=== PATIENT | female | born 1960 | race Caucasian/White ===

== ENCOUNTER 2024-09-20 09:16 | Outpatient (AMB) | payer MEDICARE, OTHER, MEDICAID, SELFPAY ==
--- OUTSIDE RECORDS SUMMARY | 2024-09-20 09:17 | XMS_ITS | Clinical Summary ---
Author Organization [facility] Address [address] [place] [address] Phone Care Team Providers Care Supervising Nurse Name Role Phone PAUL RAMIREZ, INGRID Primary Care Provider [phone] [facility] Un[facility] [phone] Reason for Visit and Chief Complaint Post Op Visit/Follow Up Plan of Treatment No Plan of Treatment Recorded Assessments Includes: Assessments from this encounter No Assessments Recorded Medical Equipment - Implanted Devices Includes: Current Devices No Medical Equipment Recorded Medications Administered Includes: Administered Medications from this encounter No Administered Medications Recorded Vital Signs Includes: Vital Signs from this encounter Vital Name 10/13/2023 08:35A Blood Pressure Sitting (mmHg) 125/85 Pulse Rate-Sitting (bpm) 99 Temp-Temporal 96.9 Weight (lb) 203 Oxygen Saturation (%) 99 Last Documented: On 10/13/2023 8:35AM ; [facility] Results Includes: Results discussed during this encounter No Results Recorded For Specified Dates History of Present Illness Includes: History of Present Illness from this encounter No History of Present Illness Recorded Social History No Social History Recorded - Smoking Status Unknown Procedures and Surgical History Includes: Procedures from this encounter Procedures Code Diagnosis Performing Provider Service Location Service Date X-Ray Exam of Hip unilateral 2-3 views (Right) 15968 Unsp intracapsular fracture of right femur, init for clos fx Karlo Mathias MD [facility] 10/13/2023 Last Documented On 4 11:04AM ; [facility] Medical History Includes: Medical History addressed during this encounter No Medical History Recorded Family History Includes: Family History addressed during this encounter No Family History Recorded Review of Systems Includes: Review of Systems from this encounter No Review of Systems Recorded Mental Status Includes: Mental Status from this encounter No Mental Status Recorded Functional Status Includes: Functional Status from this encounter No Functional Status Recorded Physical Exam Includes: Physical Exam from this encounter Encounters Encounter Provider Location Date Check-In Time Check-Out Time Diagnosis Post Op Visit/Follow Up Karlo Mathias MD [facility] 10/13/19 8:20AM 9:06AM Insurance Includes: Active Insurance Policies Plan Name Member ID Group # Subscriber Relationship Effect jose antonio Dates 1 - Medicare Part B [facility] [id number] Azul Rothman Self 2 - [id number] Azul Rothman Self 3 - [facility] [id number] Azul Rothman Self Clinical Notes Includes: Clinical Notes from this encounter * Progress note Date Encounter Last Documented by 10/13/2023 Post Op Visit/Follow Up Last doc umented on 10/13/2023; 9:08 AM, Karlo Mathias MD; [facility], Chief Complaint CC right hip, nondisplaced femoral neck fracture S/p in situ fixation cannulated screws DOS: 12 September 2023 HPI: 63-year-old female returns today ambulates without crutch cane or gait aid Denies groin pain states a little bit sore at the scar and little bit of hypersensitivity there Denies fevers chills sweats denies Protelos drainage cellulitis erythema or true fluctuance Physical exam alert oriented nondistressed female. Rises easily gait nonantalgic. Leg lengths equal no rotational asymmetry incision: Pristine Little bit of hypersensitivity but no sign of dehiscence drainage fluctuance or purulence no hematoma seroma noted Sensation intact distally good capillary refill distally X-rays Thursday, 13 October 2023 Right hip 2 views Well-placed cannulated screws x 3 Maintenance of tip to apex distance Minimal prominence laterally without backout Plan: Weightbearing as tolerated Reassurance follow-up 6 weeks x-rays right hip 2 views AP lateral Physical Findings - Vitals taken 10/13/2023 08:35 am BP-Sitting 125/85 mmHg Pulse Rate-Sitting 99 bpm Temp-Temporal 96.9 F Weight 203 lbs Oxygen Saturation 99 %
--- OUTSIDE RECORDS SUMMARY | 2024-09-20 09:17 | XMS_ITS ---
Author Organization [place] [facility] Address [address] [place] [address] Phone Care Team Providers Care Aircraft Landing Gear Inspector Name Role Phone PAUL RAMIREZ, INGRID Primary Care Provider [phone] [facility] Un[facility] [phone] Plan of Treatment No Plan of Treatment Recorded Assessments Includes: Assessments for all patient encounters No Assessments Recorded Medical Equipment - Implanted Devices Includes: Current and historical Devices No Medical Equipment Recorded Medications Administered Includes: Administered Medications in patient's chart No Administered Medications Recorded Vital Signs Includes: Vital Signs from 09/20/2023 through 09/20/2024 Vital Name 10/13/2023 08:35A Blood Pressure Sitting (mmHg) 125/85 Pulse Rate-Sitting (bpm) 99 Temp-Temporal 96.9 Weight (lb) 203 Oxygen Saturation (%) 99 Last Documented: On 10/13/2023 8:35AM ; [facility] Results Includes: Results from 09/20/2023 through 09/20/2024 No Results Recorded For Specified Dates History of Present Illness History of Present Illness not supported for this document type No History of Present Illness Recorded Social History No Social History Recorded - Smoking Status Unknown Procedures and Surgical History Includes: Procedures from 09/20/2023 through 09/20/2024 Procedures Code Diagnosis Performing Provider Service Location Service Date X-Ray Exam of Hip unilateral 2-3 views (Right) 17713 Unsp intracapsular fracture of right femur, init for clos fx Karlo Mathias MD [facility] 10/13/2023 Last Documented On 11:04AM ; [facility] Medical History Includes: Medical History in patient's chart No Medical History Recorded Family History Includes: Family History in patient's chart No Family History Recorded Review of Systems Review of Systems not supported for this document type No Review of Systems Recorded Mental Status No Mental Status Recorded Functional Status No Functional Status Recorded Physical Exam Physical Exam not supported for this document type No Physical Exam Recorded Encounters Includes: Encounters from 09/20/2023 through 09/20/2024 Encounter Provider Location Date Check-In Time Check-Out Time Diagnosis Post Op Visit/Follow Up Karlo Mathias MD [facility] 10/13/19 8:20AM 9:06AM Insurance Includes: Active Insurance Policies Plan Name Member ID Group # Subscriber Relationship Effect jose antonio Dates 1 - Medicare Part B [facility] [id number] Azul Chidi Stephan Self 2 - [id number] Azul Chidi Stephan Self 3 - [facility] [id number] Azul Chidi Bradendamian Self Clinical Notes Includes: Signed Clinical Notes starting from 08/31/2022 * Progress note Date Encounter Last Documented by 10/13/2023 Post Op Visit/Follow Up Last doc umented on 10/13/2023; 9:08 AM, Karlo Mathias MD; [facility] Chief Complaint CC right hip, nondisplaced femoral [...] intact distally good capillary refill distally X-rays 13 October 2023 Right hip 2 views [...]
--- OUTSIDE RECORDS SUMMARY | 2024-09-20 09:17 | XMS_ITS | Clinical Summary ---
Author Organization [facility] [facility] Address [address] [place] [address] Phone Care Team Providers Care Crime Lab Analyst Name Role Phone PAUL RAMIREZ, INGRID Primary Care Provider [phone] [facility] [facility] Unavailable [phone] Reason for Visit and Chief Complaint Post Op Visit/Follow Up Plan of Treatment No Plan of Treatment Recorded Assessments Includes: Assessments from this encounter No Assessments Recorded Medical Equipment - Implanted Devices Includes: Current Devices No Medical Equipment Recorded Medications Administered Includes: Administered Medications from this encounter No Administered Medications Recorded Results Includes: Results discussed during this encounter No Results Recorded For Specified Dates History of Present Illness Includes: History of Present Illness from this encounter No History of Present Illness Recorded Social History No Social History Recorded - Smoking Status Unknown Medical History Includes: Medical History addressed during [...] Exam Includes: Physical Exam from this encounter No Physical Exam Recorded Insurance Includes: Active Insurance Policies Plan Name Member ID Group # Subscriber Relationship Effect jose antonio Dates 1 - Medicare Part B [facility] [id number] Azul Rothman Self 2 - [id number] Azul Rothman Self 3 - [facility] [id number] Azul Rothman Self Clinical Notes Includes: Clinical Notes from this encounter No Clinical Notes Recorded
--- OUTSIDE RECORDS SUMMARY | 2024-09-20 09:17 | XMS_ITS ---
Care Plan - [facility] Created on: September 20, 2024 Azul Rothman : 1960 Sex: Female Author Organization [facility] Address [address] [place] [address] Phone Care Team Providers Care Paper Products Inspector Name Role Phone INGRID MILLER MD Primary Care Provider [phone] [facility] Unavailable [phone]
--- OUTSIDE RECORDS SUMMARY | 2024-09-20 09:18 | XMS_ITS | Data Portability ---
Author Organization [place] [facility] Address [address] [place] [address] Care Team Providers Care Transmission Design Engineer Name Role Phone ANN MILLER Primary Care Provider Assessment Encounter Date Assessment Date Assessment LastModified by Organization Details LastModified Time 12/17/2019 12/17/2019 Overview/History : Pt is a 59yo F with PMH sig for Anxiety, HTN, and Autoimmunie disorders. Pt reports that for the last 4 days with the increasing concerns r/t COVID 19 pt's anxiety has become increasingly worse. She reports heart palpations which have occurred in the past with her anxiety. She also reports SOB and CP at times that is substernal and non-reproducible. Pt was restarted on her citalopram 4 days ago and given PRN ativan that has not yet improved sx of anxiety. Exam: Pt is A/Ox3, anxious appearing, VSS but HR intermittently tachycardic, EKG shows NSR with PVCs, resp reg and unlabored on RA, lungs CTA bilat. DDx considered, but not limited to: Anxiety: likely cause of sx given hx and that sx are worse when pt becomes more anxious ACS: possible given CP is substernal and non-reproducible, no active NV noted on EKG at time of visit Plapations: likely given PVCs noted on EKG during visit. Hypokalemia: likely given K of 3.1 on labs Work up/Results: POC 6+: K of 3.1 Cr: WNL EKG: NSR with PVC Plan/Discussion: Case discussed with Virtual Doctor onchosea, Dr. Ribera, given pt's sx and age pt referred to the ER for further eval and testing to definitely r/o cardiac as cause of sx. Pt in agreement with this plan. Pt given a copy of the EKG as she opted to travel by private care to [facility], expect called into [facility]. Patients PCP contacted and updated on patient status. Patient verbalized understanding of discharge instructions and when to follow up with PCP/911/ED as needed. Patient in agreement with current plan and treatment. mary Not available 12/17/2019 15:57:59 Plan of Treatment Reminders Order Date Submit Date Provider Last Modified By Organization Details Last Modified Time Details Appointments None recorde d. Lab 6+ iStat 020 mary [facility], [address] [facility] [address], [place], [address], 0 16:01:44 creatin ine, blood mary [facility], [address] [facility], [place], [address], 0 16:01:43 Referral None recorde d. Procedures None recorde d. Surgeries None recorde d. Imaging None recorde d. Medication Orders None recorde d. Patient TargetsNo targets recorded. Patient Instructions Encounter Date Encounter Id Patient Instructions Last Modified By Organization Details Last Modified Time 12/17/2019 [id number] Anxiety What you should know: Anxiety is a condition that causes you to feel excessive worry, uneasiness, or fear. Family or work stress, smoking, caffeine, and alcohol can increase the risk of developing anxiety. Certain medications or health conditions can also increase the risk of developing anxiety. Anxiety may begin gradually, but can become a long-term condition if it is not managed properly. Anxiety can cause physical symptoms as well as a sensation of ? worry.? Some of the possible physical symptoms are chest tightness, shortness of breath, dizziness, numbness and tingling in the lips and hands, and difficulty concentrating. It is often difficult to tell the difference between these symptoms and the symptoms of a more serious illness. Therefore, if you have new onset of these symptoms, you should seek immediate medical attention, especially if the symptoms are persistent. AFTER YOUR VISIT WITH [facility] Medicines: We may have prescribed medicines to help you relax. Take your medicine as directed. [facility] cannot refill these medicines for you. Contact your primary care provider (PCP) if you think your medicine is not helping or if you have side effects. Do not take alcohol with this medicine. Follow up with your Primary Care Provider this week or as directed: Make appointment to see PCP within one week. If you do not have PCP, follow up with referrals provided. Manage anxiety: Consider Counseling. Cognitive behavioral therapy (CBT) can help you understand and change how you react to events that trigger your symptoms. I suggest you get the book Feeling Good: The New Mood Therapy by Dr. Earl Urrutia regarding CBT or research CBT on the internet. Find ways to manage your symptoms. Activities such as exercise, meditation, or listening to music can help you relax. Practice deep breathing. Breathing can change how your body reacts to stress. Focus on taking slow, deep breaths several times a day, or during an anxiety attack. Breathe in through your nose, and out through your mouth. Avoid caffeine. Caffeine can make your symptoms worse. Avoid foods and drinks that are marketed as energy boosters. These products frequently have ingredients that worsen anxiety. Limit or avoid alcohol, marijuana and other intoxicants. Ask your PCP if alcohol is safe for you. You may not be able to drink alcohol if you take certain anxiety or depression medicines. Limit alcohol to 1 drink per day if you are a woman. Limit alcohol to 2 drinks per day if you are a man. A ? drink? of alcohol is considered 12 ounces of beer, 5 ounces of wine, or 1?? ounces of liquor. CONTACT YOUR PCP IF: Your symptoms get worse or do not get better with treatment. You think your medicine may be causing side effects. Your anxiety keeps you from doing your regular daily activities. SEEK CARE IMMEDIATELY OR CALL 911 IF: You have chest pain, tightness, or heaviness that spreads to your shoulders, arms, jaw, neck, or back. You feel like hurting yourself or someone else. You have fainting spells. You feel like your heart is beating irregularly. You feel extremely short of breath. If you develop any new or worsening symptoms and need after hours care, please go to nearest ER and/or call 911. If you have additional concerns or develop a change in your condition between 8am-10pm, please [facility] at [phone] to help navigate your care. mary Not available 12/17/2019 14:52:34 Reason for Referral None Reported. Results Created Date Observation Date Name Description Value Unit Range Abnormal Flag Note LastModifiedBy Organization Detail LastModifiedTime 12/17/2019 creat inine , blood crea 0.9 mg/dL 0.6-1. 3 Not Available [facility] [address] [place], [address], 12/17/2019 16:00:27 12/17/2019 6+ iStat Na 141 mmol/ L 138-14 6 Not Available [facility] [address] [place], [address], 12/17/2019 16:00:21 12/17/2019 6+ iStat K 3.1 mmol/ L 3.5-4. 9 Not Available [facility] [address] [place], [address], 12/17/2019 16:00:21 12/17/2019 6+ iStat cL 99 mmol/ L 98-109 Not Available [facility] [address] [place], [address], 12/17/2019 16:00:21 12/17/2019 6+ iStat BUN 17 mg/dL 8-26 Not Available [facility] [address] [place], [address], 12/17/2019 16:00:21 12/17/2019 6+ iStat glu 156 mg/dL 70-105 Not Available [facility] [address] [place], [address], 12/17/2019 16:00:21 12/17/2019 6+ iStat HCT 42 %_pcv 37-47 Not Available [facility] [address] [place], [address], 12/17/2019 16:00:21 12/17/2019 6+ iStat Hb 14.3 g/dL 12-17 Not Available [facility] [address] [place], [address], 12/17/2019 16:00:21 01/03/20 20 tg padillagr am No observ ation record ed. BARCODE Not Available 2019 18:58:30 Result Notes None recorded. Problems Name Problem SNOMED Code Status Onset Date Resolution Date Notes Provider Name and Address Organization Details Recorded Time Hypertensive disorder 54275242 Active 2019 ANN NEWSOME NP [address], [place], [address], [place] [facility] 0 14:49:52 Problem Notes None recorded. Procedures Surgical History Date Name Laterality Status Provider Name and Address Organization Details Recorded Time 12/17/19 20 Venipuncture - completed ANN NEWSOME NP [address], [place], [address], [place] [facility] 12/17/2019 16:00:11 12/17/19 20 ECG Interpretation - completed ANN NEWSOME NP [address], [place], [address], [place] [facility] 12/17/2019 15:50:02 Imaging Results Imaging Date Name Status LastModified by Organization Details LastModified Time 01/03/2020 electrocardiogram completed BARCODE Informa tion not available 01/03/2020 18:58:30 Procedure Notes None recorded. Medical Equipment None Reported. Allergies No known drug allergies Medications Name Sig Start Date Stop Date Status Note LastModified by Organization Details LastModified Time valacyclovir 1 gram tablet 12/16 completed Not Available Not Available Not Available amlodipine 5 mg tablet active Not Available Not Available Not Available famotidine 20 mg tablet 12/16 completed Not Available Not Available Not Available hydrochlorothiaz cristiano 25 mg tablet active Not Available Not Avail able Not Available amoxicillin 875 mg-potassium clavulanate 125 mg tablet 12/16 completed Not Available Not Available Not Available pregabalin 75 mg capsule 12/16 completed Not Available Not Available Not Available citalopram active Not Available Not Av ailable Not Available lorazepam active Not Available Not Tracie ilable Not Available Claritin active Not Available Not Avai lable Not Available levocetirizine 5 mg tablet 12/16 completed Not Available Not Available Not Available Dupixent 300 mg/2 mL subcutaneous syringe 12/16 completed Not Available Not Available Not Available Humira(CF) Pen 40 mg/0.4 mL subcutaneous kit active Not Available Not Avail able Not Available Vitals Date Recorded Body temperature Respiratory rate Oxygen saturation Oxygen saturation in Arterial blood by Pulse oximetry Heart rate Systolic blood pressure Diastolic blood pressure Provider Name and Address Organization Details Last Updated DateTime 0 97.6 [degF] 20 /min 98 % 98 % 100 /min 160 mm[Hg] 90 mm[Hg] Not Available [facility] 0 14:55:18 Social History Question Answer Notes LastModified by Organizat ion Details LastModified Time Tobacco Smoking Status Former Smoker ANN NEWSOME NP [address] [place], [address], [place] [facility] 12/17/2019 14:52:13 Do You Have An Advance Directive? No Information not available 12/17/2019 What Is Your Code Status? Full Code Information not available 12/17/2019 Excessive Alcohol Or Drug Use No Information not available 12/17/2019 Sex: Unknown Functional Status None recorded. Mental Status None recorded. Family History Relationship Description Onset Age of this Age Resolved Age Notes LastModified by Organization Details LastModified Time Father Hypertensive disorder [email or web address] Not available 12/16 14:52:06 Medical History Condition Response High Cholesterol N Pulmonary Embolism N Stroke N Hypertension Y Depression Y COPD N Asthma Y Kidney Disease N Gynecological HistoryNo gynecological history recorded. Obstetrics History GPAL:G 0 P 0 0 0 0 Past Encounters Encounter ID Performer Location Encounter Start Date Encounter Closed Date Diagnosis/Indication Diagnosis SNOMED-CT Code Diagnosis ICD10 Code [id number] ANN NEWSOME NP [facility] [address] [place] [address] 12/17/2019 14:45:40 12/18/2019 10:47:28 Anxiety 30648675 F41.9 Palpitations 87268708 R0 0.2 Hypokalemia 75534813 E87 .6 Health Concerns Section Related Observation LastModified by Organization Detai ls LastModified Time None Recorded Concern Status LastModified by Organization Details LastModified Time None Recorded Advance Directives Directive N: Payers Encounter Date Sequence Insurance Name Policy Number Policy Kurtz Covered Member ID Kurtz Member ID Guarantor Name 12/17/2019 1 [place] [employer] Azul Rothman [id number] Azul Rothman 12/17/2019 2 [place] [facility] Azul Rothman [id number] Azul Rothman Notes Date Note Type Note Provider Name and Address Organization Details Recorded Time 12/17/2019 text/html Pt reports she has had heart palpations for the last 4 days, she has had them in the past with her anxiety. Her anxiety had been well controlled and she had been off of her SSRIs but given the active COVID Pandemic pt's anxiety has gotten worse. Her PCP restarted her citalopram to help with sx along with Ativan as needed. Pt just wants to make sure it is just her anxiety and not her heart. Pt states she has some increased awareness of her breathing related to her stress. States she was doing well most of today but got nervous when she heard that DH was coming from the phone call. Pt reports that she occasional has some discomfort at the base of her neck and substernal discomfort but states it comes and goes. ANN NEWSOME, AMARIS [address] [place], [address], [place] [facility] 12/17/2019 16:01:54 OBGyn Episode No OBEpisode recorded.
--- OUTSIDE RECORDS SUMMARY | 2024-09-20 09:18 | XMS_ITS | Clinical Summary ---
Author Organization [facility] Address [address] [place] [address] Phone Care Team Providers Care Field Ring Assembler Name Role Phone PAUL RAMIREZ, INGRID Primary Care Provider [phone] [facility] Unavailable [phone] Reason for Visit and Chief Complaint Post Op Visit/Follow Up Plan of Treatment Pending Tests Order Diagnosis Results Due Ordering P rovider Follow Up - Appointment 1 Month Unsp intracapsular fracture of right femur, init for clos fx 09/15/23 Mica Carrera MD Last Documented On 3 9:56AM ; [facility] Assessments Includes: Assessments from this encounter No [...] Includes: Review of Systems from this encounter Status post ORIFRight hip femoral neck fracture in September 12 with 3 screws HPI Patient presents today for follow-up. Pain is well-controlled. Denies any fevers or chills. Has been working with home therapy and is using a walker. Physical examination Warm well-perfused foot Good range of motion of the hip and knee History of knee arthritis and patient needs a knee replacement Incision healing well with no signs of infection or bleeding Thigh compartments are soft and compressible X-rays reviewed Well-positioned hardware with good reduction of the fracture Assessment and plan Increase weightbearing to partial weightbearing with walker. Rest, ice, elevate. Continue to take anti-inflammatory medication for pain control. Follow-up in 4 weeks. Okay to get incision wet. [place] removed today. Mental Status Includes: Mental Status from this encounter No Mental Status Recorded Functional Status Includes: Functional Status from this encounter No Functional Status Recorded Physical Exam Includes: Physical Exam from this encounter No Physical Exam Recorded Encounters Encounter Provider Location Date Check-In Time Check-Out Time Diagnosis Post Op Visit/Follow Up Mica Carrera MD [facility] 09/15/20 9:40AM 9:47AM Insurance Includes: Active Insurance Policies Plan Name Member ID Group # Subscriber Relationship Effect jose antonio Dates 1 - Medicare Part B [facility] [id number] Azul Rothman Self 2 - [id number] Azul Rothman Self 3 - [facility] [id number] Azul Conway Clinical Notes Includes: Clinical Notes from this encounter * Progress note Date Encounter Last Documented by 09/15/2023 Post Op Visit/Follow Up Last doc umented on 09/15/2023; 9:56 AM, Mica Carrera MD; [facility], Plan StartCited - Unsp intracapsular fracture of right femur, init for clos fx Follow Up/Appointment: 1 Month EndCited User Defined 4 Status post ORIFRight hip femoral neck fracture in September 12 with 3 screws HPI Patient presents today for follow-up. Pain is well-controlled. Denies any fevers or chills. Has been working with home therapy and is using a walker. Physical examination Warm well-perfused foot Good range of motion of the hip and knee History of knee arthritis and patient needs a knee replacement Incision healing well with no signs of infection or bleeding Thigh compartments are soft and compressible X-rays reviewed Well-positioned hardware with good reduction of the fracture Assessment and plan Increase weightbearing to partial weightbearing with walker. Rest, ice, elevate. Continue to take anti-inflammatory medication for pain control. Follow-up in 4 weeks. Okay to get incision wet. [place] removed today.
[2024-09-20 09:41] VITALS: BP 130/76; PULSE 73; O2SAT 97; BMI 30.1
--- NOTE | 2024-09-20 09:41 | A.OFFVIS_ITS ---
Vital Signs 09/20/24 09:41 Height 5 ft 9 in Weight 204 lb BMI 30.1 BP 130/76 Blood Pressure Location Lt brachial Position Sitting Pulse 73 Pulse Source Pulse Oximeter Pulse Oximetry (%) 97 Oxygen Delivery Method Room Air Intake Visit Reasons: Spondyloarthropathy Intake Note: Patient presents for follow up on spondyloarthropathy. Allergies No Known Allergies Allergy (Verified 09/20/24 09:46) HPI HPI Spondyloarthropathy: Details: She is in pain in her hands. Running stiffness is hours. She has swollen knees. She has not had genicular nerve block from pain management and quite some time. Dr. Jacob at [facility] did not resume Simponi and methotrexate after her surgery in May. Last Simponi Aria infusion was December 2023. She has history of left calcaneal fracture with difficulty healing and revision. She is scheduled in 2 weeks for another surgery. She is currently taking oxycodone 2.5 mg and Tylenol 1000 mg for pain. She is unable to tolerate oxycodone 5 mg. She has started to have bloody stools. She follows with GI Dr. Best. She has history of spondyloarthritis, ulcerative colitis and hydradenitis suppurativa controlled previously on Simponi Aria 2 milligram/kilogram every 8 weeks and methotrexate 15mg once weekly combination. History of osteoporosis with multiple fragility fractures 07/10/2021. She had 2 rib fractures and right hip fracture 09/02/2023. Left calcaneal fracture 02/08/2024. Evenity started 03/10/2024. She had Evenity 08/12/2024, 07/15/2024, 05/25/2024 and 03/14/2024 from reviewing [facility] records. History of hyperparathyroidism. She was taking vitamin-D supplement. [facility] Medical History (Updated 09/21/24 @ 14:34 by Manoj Wolfe MD) Left wrist fracture Right scapula fracture Vitamin D deficiency Ulcerative colitis Schamberg disease MRSA (methicillin resistant Staphylococcus aureus) Hypertension Hidradenitis suppurativa Hepatic steatosis GERD (gastroesophageal reflux disease) Diabetes mellitus Asthma, mild intermittent Anxiety Spondylosis Spondyloarthropathy Osteoporosis Osteoarthritis of both knees Osteoarthritis of ankle, left Low back pain Degeneration, intervertebral disc, lumbosacral Carpal tunnel syndrome Bursitis Arthralgia Surgical History (Updated 09/16/24 @ 11:47 by Lizbet Mason CMA) S/P Achilles tendon repair History of open reduction and internal fixation (ORIF) procedure S/P left inguinal herniorrhaphy S/P cholecystectomy S/P tonsillectomy Family History (Updated 09/16/24 @ 11:52 by Lizbet Mason CMA) Father Heart disease Diabetes Review of Systems Const All systems reviewed & are unremarkable except as noted in HPI and below Physical Exam Vital Signs: Last Vital Signs Pulse 73 09/20/24 09:41 BP 130/76 09/20/24 09:41 Pulse Ox 97 09/20/24 09:41 Oxygen Delivery Method Room Air 09/20/24 09:41 BMI result Body Mass Index 30.1 Const Other: General: Comfortable CVS: RRR Respiratory: clear to auscultation bilaterally. Good respiratory effort Skin: No lesions seen MSK: Tender to palpate bilateral MCPs, chronic synovial thickening bilateral MCPs, left 3rd PIP synovitis present. Bilateral wrists are tender with left wrist synovitis present. Bilateral elbows and shoulders are tender. Limited full shoulder abduction bilateral due to pain. Good internal and external rotation of bilateral shoulders. Bilateral knees are swollen. Valgus knee deformity present. Tender to palpate bilateral ankles. Bulge present left Achilles tendon at the insertion. Tender MCPs. There is hallux valgus present. Assessment & Plan Assessment & Plan (1) Spondyloarthropathy: Comment: She has history of spondyloarthritis with secondary treatment failure to Humira. Previously in remission on methotrexate and Simponi Aria. Treatment was held when she developed left calcaneal fracture without healing complicated with postoperative infection to Achilles tendon 01/2024 s/p surgery with plan for revision in 2 weeks. Last Simponi Aria was given 12/2023. Inflammatory arthritis and ulcerative colitis is uncontrolled off of Simponi Aria and methotrexate. Code(s): M47.819 - Spondylosis without myelopathy or radiculopathy, site unspecified Category: Medical Plan: Labs for drug and disease monitoring ordered I will start process for Enriqueta BADILLO After lab results are back, I will send prescription for methotrexate 15 mg once weekly and folic acid 2 mg daily She will inquire with orthopedic surgeon if it is okay for her to be on prednisone course prior to her planned surgery in 2 weeks for left Achilles tendon reattachment I encouraged her to call pain management for management of knee osteoarthritis with scheduling genicular nerve block Return to clinic in 3 months (2) Other residential (current) drug therapy: Code(s): Z79.899 - Other residential (current) drug therapy Category: Medical Plan: See above (3) Osteoporosis: Comment: Prior history of hyperparathyroidism and with multiple fragility fractures. She is on Evenity. Code(s): M81.0 - Age-related osteoporosis without current pathological fracture Category: Medical Plan: Cristóbal PR for continuity of treatment Labs to check calcium and vitamin-D ordered Continue vitamin-D 1000 IU daily Orders: Orders C Reactive Protein 09/20/24 Z79.899 - Other terminal system operator (current) drug therapy Alanine Aminotransferase 09/20/24 Z79.60 - petroleum terminal plant operator (current) use of unspecified immunomodulators and immunosuppressants Creatinine 09/20/24 Z79.60 - [facility] (current) use of unspecified immunomodulators and immunosuppressants T Spot TB 09/20/24 M47.819 - Spondylosis without myelopathy or radiculopathy, site unspecified, Z79.899 - Other terminal system operator (current) drug therapy Albumin Level Today M81.0 - Age-related osteoporosis without current pathologic al fracture Calcium Today M81.0 - Age-related osteoporosis without current pathological fracture Erythrocyte Sedimentation Rate 09/20/24 M47.819 - Spondylosis without myelopathy or radiculopathy, site unspecified, Z79.899 - Other terminal system operator (current) drug therapy Aspartate Amino Transferase 09/20/24 Z79.60 - [facility] (current) use of unspecified immunomodulators and immunosuppressants Complete Blood Count Auto Diff 09/20/24 Z79.60 - petroleum terminal plant operator (current) use of unspecified immunomodulators and immunosuppressants Hepatitis B,C Profile 09/20/24 M47.819 - Spondylosis without myelopathy or radiculopathy, site unspecified, Z79.899 - Other residential (current) drug therapy Vitamin D 25-OH Total Today M81.0 - Age-related osteoporosis without current pathological fracture Referrals Infusion Center Notification K51.90 - Ulcerative colitis, unspecified, without complications, L73.2 - Hidradenitis suppurativa, M47.819 - Spondylosis without myelopathy or radiculopathy, site unspecified Coding Level of Care Code Est Pt Level 5 (67655) Complex EM visit Add On G2211 Diagnoses Spondyloarthropathy M47.819 Other residential (current) drug therapy Z79.899 Osteoporosis M81.0 Time Spent (min) 70 Comment [id number] interaction reviewing records
== END 2024-09-20 10:25 | disposition home or self-care (01) ==
PROVIDERS: Visit Provider Internal Medicine Rheumatology
DX: M47.819 Spondylosis without myelopathy or radiculopathy, site unspecified (principal); Z79.899 Other long term (current) drug therapy; M81.0 Age-related osteoporosis without current pathological fracture
CPT/HCPCS: 99215; G2211; G2212

== ENCOUNTER → 2024-09-20 09:16 | Outpatient (BNVA) | payer MEDICARE, MEDICAID, OTHER, SELFPAY | PROVIDERS: Visit Provider Internal Medicine Rheumatology | DX: M81.0 Age-related osteoporosis without current pathological fracture (principal); M47.819 Spondylosis without myelopathy or radiculopathy, site unspecified; Z79.899 Other long term (current) drug therapy | CPT/HCPCS: 99212 ==

== ENCOUNTER 2024-09-22 07:09 | Outpatient (REF) | payer MEDICARE, MEDICAID, OTHER, SELFPAY ==
[2024-09-22 09:51] LABS: MANUAL DIFF FLAG NO
[2024-09-22 10:03] LABS: Basophils Absolute Auto 0.1 X10*3/uL (0.0-0.2); Eosinophils Absolute Auto 0.2 X10*3/uL (0.0-0.4); Eosinophils Percent Auto 1.6 % (0-4); Hematocrit 34.7 % (37.0-47.0); Hemoglobin 10.4 g/dl (12.0-16.0); Imm Gran Abs Auto 0.06 X10*3/uL (0.00-0.03); Imm Gran Pct Auto 0.7 % (0.0-0.4); Lymphocytes Absolute Auto 2.5 X10*3/uL (1.2-4.9); Lymphocytes Percent Auto 27.1 % (20-40); Mean Corpuscular Hemoglobin 23.7 pg (27.0-33.0); Mean Corpuscular Volume 79.2 fL (80.0-98.0); Mean Platelet Volume 10.1 fL (9.4-12.3); Monocytes Absolute Auto 0.8 X10*3/uL (0.1-1.2); Monocytes Percent Auto 8.5 % (2-11); Neutrophils Absolute Auto 5.6 x10*3/uL (2.0-8.3); Neutrophils Percent Auto 61.1 % (45-73); Platelet Count 485 X10*3/uL (160-400); Red Blood Count 4.38 X10*6/uL (4.20-5.50); Red Cell Distribution Width 15.9 % (11.0-16.0); White Blood Count 9.2 X10*3/uL (4.8-10.8)
[2024-09-22 10:09] LABS: Estimated Average Glucose 154 mg/dL; Hemoglobin A1C 139.1968 umol/L; Total Hemoglobin (HGBA1C) 2647.7831 umol/L
[2024-09-22 10:16] LABS: Alanine Aminotransferase 16 U/L (0-31); Albumin Level 4.2 g/dL (3.5-5.0); Aspartate Amino Transferase 23 U/L (5-31); C Reactive Protein 0.59 mg/dL (< or = 0.50); Estimated Glomerular Filt Rate > 60
[2024-09-22 10:33] LABS: Vitamin D 25-OH Total 30.4 ng/mL (>30)
[2024-09-22 10:36] LABS: HBS Num1 3.88 mIU/mL (0-7.99); HBc Num1 0.22 S/CO (0.00-0.79); Hepatitis B Core Antibody Nonreactive (Nonreactive); Hepatitis B Surface Antigen Negative (Negative); ~HepC Num1 0.13 S/CO (0.00-0.79); ~Hepatitis B Surface Antibody NONREACTIVE (Nonreactive); ~Hepatitis C Antibody Nonreactive (Nonreactive)
[2024-09-22 10:39] LABS: Erythrocyte Sedimentation Rate 30 MM/HR (0-20)
[2024-09-25 03:53] LABS: TS Negative Control Passed; TS Panel A 0; TS Panel B 0; TS Positive Control Passed; TSpotTB Negative (Negative)
== END 2024-09-22 07:10 | disposition home or self-care (01) ==
LOC: HO.HMGCLDS 07:09
PROVIDERS: Absent Provider Orthopaedic Surgery; Visit Provider Internal Medicine Rheumatology
DX: Z01.812 Encounter for preprocedural laboratory examination (principal); Z79.01 Long term (current) use of anticoagulants; Z79.61 Long term (current) use of immunomodulator; Z79.899 Other long term (current) drug therapy; M47.819 Spondylosis without myelopathy or radiculopathy, site unspecified; M81.0 Age-related osteoporosis without current pathological fracture; R73.09 Other abnormal glucose
CPT/HCPCS: 36415; 82040; 82306; 82310; 82565; 83036; 84450; 84460; 85025; 85652; 86140; 86481; 86704; 86706; 86803; 87340

== ENCOUNTER → 2024-11-01 10:25 | Outpatient (BNVA) | payer MEDICARE, MEDICAID, OTHER, SELFPAY | PROVIDERS: PCP Internal Medicine Rheumatology; Visit Provider Internal Medicine Rheumatology | DX: S46.212A Strain of muscle, fascia and tendon of other parts of biceps, left arm, initial encounter (principal); X58.XXXA Exposure to other specified factors, initial encounter; Y93.9 Activity, unspecified; Y92.9 Unspecified place or not applicable; Y99.9 Unspecified external cause status | CPT/HCPCS: 99212 ==

== ENCOUNTER 2024-12-15 09:52 | Outpatient (REF) | payer MEDICARE, MEDICAID, OTHER, SELFPAY ==
[2024-12-15 18:02] LABS: MANUAL DIFF FLAG NO
[2024-12-15 18:12] LABS: Basophils Absolute Auto 0.1 X10*3/uL (0.0-0.2); Basophils Percent Auto 0.5 % (0-2); Eosinophils Absolute Auto 0.1 X10*3/uL (0.0-0.4); Eosinophils Percent Auto 0.7 % (0-4); Hematocrit 36.3 % (37.0-47.0); Hemoglobin 11.1 g/dl (12.0-16.0); Imm Gran Abs Auto 0.04 X10*3/uL (0.00-0.03); Imm Gran Pct Auto 0.4 % (0.0-0.4); Lymphocytes Absolute Auto 2.3 X10*3/uL (1.2-4.9); Mean Corpuscular HGB Conc 30.6 g/dl (31.0-35.0); Mean Corpuscular Hemoglobin 23.3 pg (27.0-33.0); Mean Corpuscular Volume 76.1 fL (80.0-98.0); Mean Platelet Volume 10.6 fL (9.4-12.3); Monocytes Absolute Auto 0.7 X10*3/uL (0.1-1.2); Monocytes Percent Auto 7.4 % (2-11); Neutrophils Absolute Auto 6.3 x10*3/uL (2.0-8.3); Platelet Count 421 X10*3/uL (160-400); Red Blood Count 4.77 X10*6/uL (4.20-5.50); Red Cell Distribution Width 18.2 % (11.0-16.0); White Blood Count 9.4 X10*3/uL (4.8-10.8)
[2024-12-15 18:28] LABS: Alanine Aminotransferase 31 U/L (0-31); Aspartate Amino Transferase 33 U/L (5-31); C Reactive Protein 0.53 mg/dL (< or = 0.50); Calcium 9.7 mg/dL (8.4-10.2); Estimated Glomerular Filt Rate > 60; Iron 19 mcg/dL (30-160); Percent Iron Saturation 5 % (15-50); Total Iron Binding Capacity 403 mcg/dL (228-428); Unsaturated Iron Binding 384 ug/dL
[2024-12-15 18:42] LABS: Ferritin 11 ng/mL (10-250); Vitamin D 25-OH Total 38.3 ng/mL (>30)
[2024-12-15 19:11] LABS: Erythrocyte Sedimentation Rate 23 MM/HR (0-20)
[2024-12-16 17:04] LABS: Transferrin 375 mg/dL (188-341)
== END 2024-12-15 09:53 | disposition home or self-care (01) ==
LOC: HO.HKASLDS 09:52
PROVIDERS: PCP Internal Medicine Rheumatology; Visit Provider Internal Medicine Rheumatology
DX: M47.819 Spondylosis without myelopathy or radiculopathy, site unspecified (principal); M81.0 Age-related osteoporosis without current pathological fracture; Z79.899 Other long term (current) drug therapy; D50.9 Iron deficiency anemia, unspecified; Z79.60 Long term (current) use of unspecified immunomodulators and immunosuppressants
CPT/HCPCS: 36415; 82040; 82306; 82310; 82565; 82728; 83540; 84450; 84460; 84466; 85025; 85652; 86140; 99212

== ENCOUNTER 2024-12-15 09:52 | Outpatient (AMB) | payer MEDICARE, MEDICAID, OTHER, SELFPAY ==
--- NOTE | 2024-12-15 10:05 | MHC.OFFVIS ---
Vital Signs 12/15/24 10:15 BP 110/80 Pulse 87 Pulse Source Pulse Oximeter Pulse Oximetry (%) 97 Oxygen Delivery Method Room Air Intake Visit Reasons: Follow Up 3mo Intake Note: Patient presents for follow up for spondyloarthropathy and sprain in left shoulder. Allergies No Known Allergies Allergy (Verified 12/15/24 10:09) HPI HPI Follow Up 3mo: Details: She saw [facility] and had left shoulder MRI, which revealed inflammation with bursitis. Cortisone injection 2 weeks ago provided partial relief. She continues to have pain anteriorly with limited range of motion. Hard to do chores such as vacuuming. She continues to have swelling in her hands and left wrist. She has Simponi scheduled for tomorrow. No recent infections. She is delaying surgery on her ankle at this time. She does not want to go through rehabilitation and wearing a boot for 8 weeks. She received a noticed that Evenity was approved. In the past methotrexate 20 mg once weekly caused transaminitis. [facility] Medical History (Updated 12/16/24 @ 20:59 by Manoj Wolfe MD) Right rotator cuff tear Fracture of left hip requiring operative repair Left wrist fracture Right scapula fracture Vitamin D deficiency Ulcerative colitis Schamberg disease MRSA (methicillin resistant Staphylococcus aureus) Hypertension Hidradenitis suppurativa Hepatic steatosis GERD (gastroesophageal reflux disease) Diabetes mellitus Asthma, mild intermittent Anxiety Spondylosis Spondyloarthropathy Osteoporosis Osteoarthritis of both knees Osteoarthritis of ankle, left Low back pain Degeneration, intervertebral disc, lumbosacral Carpal tunnel syndrome Bursitis Arthralgia Surgical History S/P Achilles tendon repair History of open reduction and internal fixation (ORIF) procedure S/P left inguinal herniorrhaphy S/P cholecystectomy S/P tonsillectomy Family History Father Heart disease Diabetes Review of Systems Const All systems reviewed & are unremarkable except as noted in HPI and below Physical Exam Vital Signs: Last Vital Signs Pulse 87 12/15/24 10:15 BP 110/80 12/15/24 10:15 Pulse Ox 97 12/15/24 10:15 Oxygen Delivery Method Room Air 12/15/24 10:15 Const Other: General: Comfortable CVS: RRR Respiratory: clear to auscultation bilaterally. Good respiratory effort Skin: No lesions seen MSK: Tender to palpate bilateral MCPs and PIPs in right hand with synovitis right 3rd PIP, Bilateral wrists are tender with left wrist synovitis present. Bilateral elbows and shoulders are tender. R shoulder abduction 160 degrees with normal internal rotation with limited full external rotation. Left shoulder abduction 30 degrees with pain. Limited external and internal rotation of left shoulder. Bilateral knees are swollen. Valgus knee deformity present. Tender to palpate bilateral ankles. Assessment & Plan Assessment & Plan (1) Spondyloarthropathy: Comment: Spondyloarthritis is not controlled. She is receiving 2nd maintenance dose Simponi Aria tomorrow after it was held due to Achilles tendon infection in January 2024 and not restarted by Dr. Jacob for maintenance after surgery. Both inflammatory arthritis and ulcerative colitis relapsed off of Simponi Aria. [facility] ordered left shoulder MRI, which revealed inflammation in the shoulder with bursitis per patient likely related to underlying inflammatory arthritis not being controlled. She has limited ROM in left shoulder and wrist/hands with reduced function. I will treat inflammatory arthritis with depomedrol IM today with the hope that with her infusion tomorrow her symptoms will be better managed. Rheumatology history: Previously inflammatory arthritis and ulcerative colitis was in remission on methotrexate and Simponi Aria. Treatment was held when she developed left calcaneal fracture 01/2025 without healing complicated with postoperative infection to Achilles tendon 01/2024 s/p surgery. She is currently holding plan for revision because she does not want to be immobile for the duration of 8 weeks that she needs to wear a boot. Simponi Aria 07/2021- 12/2023 then resumed 12/16/2024. Sees GI Dr. Kennedy. Secondary treatment failure for inflammatory arthritis (L wrist) with Humira, which was prescribed by GI for ulcerative colitis. MTX was added due to inflammatory arthritis left ankle 07/2012-. Previously on methotrexate 20 mg once weekly, which was reduced to 15 mg once weekly due to transaminitis. History of hydradenitis suppurativa previously controlled on humira and remains in control on Simponi. She sees pain management for left ankle tendinopathy pain controlled with guided cortisone injection. She also receives geniculate nerve block for pain control for osteoarthritis bilateral knees. Code(s): M47.819 - Spondylosis without myelopathy or radiculopathy, site unspecified Category: Medical Plan: Labs for drug and disease monitoring ordered Depo-Medrol 100 mg IM today Continue methotrexate 15 mg once weekly Continue folic acid 2 mg daily Continue Simponi Aria maintenance every 8 weeks infusion Requesting L shoulder MRI report She has an upcoming appointment with pain management for management of knee osteoarthritis with genicular nerve block [facility] Return to clinic in 3 months (2) Osteoporosis: Comment: Prior history of hyperparathyroidism and with multiple fragility fractures: She fell down 1 step and fractured her left ulnar styloid, left radial head, left base of 5th metatarsal and elbow. She had right hip fracture and 2 ribs were fractured 09/02/2024, and left calcaneus was fractured January 2024. High risk for future fractures. Forteo and Tymlos contraindicated due to hyperparathyroidism. She had Romosuzumab 02/2024, 05/25/2024, 07/15/2024, and 08/12/2024. She received a letter recently that Romosuzumab was approved. Code(s): M81.0 - Age-related osteoporosis without current pathological fracture Category: Medical Qualifiers: Osteoporosis type: unspecified Presence of current pathological fracture: unspecified Qualified Code(s): M81.0 - Age-related osteoporosis without current pathological fracture Plan: Labs to check calcium and vitamin-D ordered Schedule nurse visit for Romosuzumab Continue vitamin-D 1000 IU daily per endocrine recommendations [facility]. She has had hypercalcemia in the past. She is not taking calcium supplement. Requesting all bone densities from [facility] and arthritis treatment center Return to clinic in 3 months (3) Other [facility] (current) drug therapy: Code(s): Z79.899 - Other [facility] (current) drug therapy Category: Medical Plan: See above (4) Iron deficiency anemia: Comment: Chronic microcytic anemia on iron supplement Code(s): D50.9 - Iron deficiency anemia, unspecified Category: Medical Qualifiers: Iron deficiency anemia type: unspecified iron deficiency Qualified Code(s): D50.9 - Iron deficiency anemia, unspecified Plan: Iron studies ordered per patient's request. I have [facility]CP patient's PCP for results. Orders: Orders Complete Blood Count Auto Diff 12/15/24 Z79.60 - shelter (current) use of unspecified immunomodulators and immunosuppressants Creatinine 12/15/24 Z79.60 - shelter (current) use of unspecified immunomodulators and immunosuppressants C Reactive Protein 12/15/24 Z79.899 - Other [facility] (current) drug therapy IRON PROFILE 12/15/24 D50.9 - Iron deficiency anemia, unspecified Alanine Aminotransferase 12/15/24 Z79.60 - shelter (current) use of unspecified immunomodulators and immunosuppressants Aspartate Amino Transferase 12/15/24 Z79.60 - superintendent terminal (current) use of unspecified immunomodulators and immunosuppressants Erythrocyte Sedimentation Rate 12/15/24 Z79.899 - Other [facility] (current) drug therapy Vitamin D 25-OH Total 12/15/24 M81.0 - Age-related osteoporosis without current pathological fracture Calcium 12/15/24 M81.0 - Age-related osteoporosis without current pathological fracture Albumin Level 12/15/24 M81.0 - Age-related osteoporosis without current pathological fracture Transferrin 12/15/24 D50.9 - Iron deficiency anemia, unspecified Ferritin 12/15/24 D50.9 - Iron deficiency anemia, unspecified Coding Level of Care Code Est Pt Level 5 (74215) Complex EM visit Add On G2211 Diagnoses Spondyloarthropathy M47.819 Osteoporosis, unspecified osteoporosis type, unspecified pathological fracture presence M81.0 Osteoporosis type: unspecified Presence of current pathological fracture: unspecified Other intermodal dispatcher (current) drug therapy Z79.899 Iron deficiency anemia, unspecified iron deficiency anemia type D50.9 Iron deficiency anemia type: unspecified iron deficiency Time Spent (min) 40
[2024-12-15 10:15] VITALS: BP 110/80; PULSE 87; O2SAT 97
--- NOTE | 2024-12-15 11:03 | AM.OFFVISNUR ---
Vital Signs 12/15/24 10:15 BP 110/80 Pulse 87 Pulse Source Pulse Oximeter Pulse Oximetry (%) 97 Oxygen Delivery Method Room Air Intake Visit Reasons: Follow Up 3mo Allergies No Known Allergies Allergy (Verified 12/15/24 10:09) Nursing Note Patient received Depo-medrol 100 mg injection in right deltoid per order of Dr. Manoj Wolfe Depo-Medrol (methylprednisolone 80mg/mL LOT# [id number] EXP 02/2026 Depo-Medrol (methylprednisolone 40mg/mL LOT# [id number] EXP 02/2026 Administered by: Best CAMERON, RN. Patient tolerated well. No injection site reaction noted. Assessment & Plan Assessment & Plan (1) Osteoporosis: Comment: Prior history of hyperparathyroidism and with multiple fragility fractures. She is on Evenity. Code(s): M81.0 - Age-related osteoporosis without current pathological fracture Category: Medical (2) Spondyloarthropathy: Comment: She has history of spondyloarthritis with secondary treatment failure to Humira. Previously in remission on methotrexate and Simponi Aria. Treatment was held when she developed left calcaneal fracture without healing complicated with postoperative infection to Achilles tendon 01/2024 s/p surgery with plan for revision in 2 weeks. Last Simponi Aria was given 12/2023. Inflammatory arthritis and ulcerative colitis is uncontrolled off of Simponi Aria and methotrexate. Code(s): M47.819 - Spondylosis without myelopathy or radiculopathy, site unspecified Category: Medical (3) Other group home (current) drug therapy: Code(s): Z79.899 - Other dedicated intermodal truck driver (current) drug therapy Category: Medical (4) Iron deficiency anemia: Code(s): D50.9 - Iron deficiency anemia, unspecified Category: Medical Orders: Orders Complete Blood Count Auto Diff Today Z79.60 - terminal worker (current) use of unspecified immunomodulators and immunosuppressants Creatinine Today Z79.60 - terminal worker (current) use of unspecified immunomodulators and immunosuppressants C Reactive Protein Today Z79.899 - Other group home (current) drug therapy IRON PROFILE Today D50.9 - Iron deficiency anemia, unspecified Alanine Aminotransferase Today Z79.60 - care home (current) use of unspecified immunomodulators and immunosuppressants Aspartate Amino Transferase Today Z79.60 - care home (current) use of unspecified immunomodulators and immunosuppressants Erythrocyte Sedimentation Rate Today Z79.899 - Other group home (current) drug therapy Vitamin D 25-OH Total Today M81.0 - Age-related osteoporosis without current pathological fracture Calcium Today M81.0 - Age-related osteoporosis without current pathological fracture Albumin Level Today M81.0 - Age-related osteoporosis without current pathological fracture Transferrin Today D50.9 - Iron deficiency anemia, unspecified Ferritin Today D50.9 - Iron deficiency anemia, unspecified Coding Diagnoses Osteoporosis M81.0 Spondyloarthropathy M47.819 Other dedicated intermodal truck driver (current) drug therapy Z79.899 Iron deficiency anemia D50.9
== END 2024-12-15 10:50 | disposition home or self-care (01) ==
LOC: HO.RHES 09:52
PROVIDERS: PCP Internal Medicine Rheumatology; Visit Provider Internal Medicine Rheumatology
DX: M47.819 Spondylosis without myelopathy or radiculopathy, site unspecified (principal); M81.0 Age-related osteoporosis without current pathological fracture; Z79.899 Other long term (current) drug therapy; D50.9 Iron deficiency anemia, unspecified
CPT/HCPCS: 99215; G2211

== ENCOUNTER 2025-02-01 14:00 | Outpatient (REF) | payer MEDICARE, MEDICAID, OTHER, SELFPAY ==
--- NOTE | ~2025-02-01 | MM_ITS ---
EXAMINATION: DXA BONE DENSITY AXIAL HISTORY: M81.0 - Age-related osteoporosis without current pathological fracture TECHNIQUE: Xenith Dual energy absorptiometry (DEXA) of the lumbar spine, total left hip, and femoral neck was performed. COMPARISON: There are no prior studies for comparison. FINDINGS: The bone mineral density of the lumbar spine is 1.389 with a T-score of 1.6, and a Z-score of 2.1. This is indicative of normal bone mineral density. The bone mineral density of the left total hip is 0.783 with a T-score of -1.8, and a Z-score of -1.3. This is indicative of osteopenia. The bone mineral density of the left femoral neck is 0.729 with a T-score of -2.2, and a Z-score of -1.4. This is indicative of osteopenia. FRACTURE RISK: The FRAX index suggests a risk of major osteoporotic fracture of 182%, and of hip fracture 3.0%. MM/XR DEXA axial skeleton IMPRESSION: Based on bone mineral density, and according to World Health Organization (WHO) criteria, the diagnosis is consistent with osteopenia. All bone density values are in grams per centimeter squared (g/cm2). Statistically, 68% of repeat scans fall within 1 SD (+/- 0.010 g/cm2 for AP spine L1-L4) and 1 SD (+/- 0.012 g/cm2 for femur total) FRAX is a trademark of the [employer] [place] [employer] Metabolic Bone Disease, a World Health Organization (WHO) Collaborating Center. Electronically signed by: Aung Menchaca MD 02/01/2025 03:03 PM EDT
--- OUTSIDE RECORDS SUMMARY | 2025-02-01 14:04 | XMS_ITS | Data Portability ---
Author Organization [place] [facility] Address [address] [place] [address] Care Team Providers Care Mat Weaver Name Role Phone ANN MILLER Primary Care [...] CP is substernal and non-reproducible, no active [place] noted on EKG at time of visit [...] opted to travel by private care to [facility], expect called into [facility]. Patients PCP contacted and updated on [...] iStat 020 mary [facility], [address] [facility], [place], [address], 0 16:01:44 creatin ine, blood mary [facility], [address] [facility], [place], [address], 0 16:01:43 Referral None recorde d. Procedures None recorde d. Surgeries None recorde d. Imaging None recorde d. Medication Orders None recorde d. Patient TargetsNo targets recorded. Patient Instructions Encounter Date Encounter Id Patient Instructions Last Modified By Organization Details Last Modified Time 12/17/2019 [id number] Anxiety What you should know: Anxiety is [...] as well as a sensation of ? w orry.? Some of the possible physical symptoms are [...] symptoms are persistent. AFTER YOUR VISIT WITH [facility] Medicines: We may have prescribed medicines to help you relax. Take your medicine as directed. [facility] cannot refill these medicines for you. Contact [...] if you are a man. A ? d rink? of alcohol is considered 12 ounces of beer, 5 ounces of wine, or 1? ? ? ounces of liquor. CONTACT YOUR PCP IF: [...] in your condition between 8am-10pm, please call [facility] at [phone] to help navigate your care. [email or web address] Not available 12/17/2019 14:52:34 Reason for Referral None Reported. Results Created Date Observation Date Name Description Value Unit Range Abnormal Flag Note LastModifiedBy Organization Detail LastModifiedTime 12/17/19 20 12/17/2019 creat inine , blood crea 0.9 mg/dL 0.6-1. 3 Not Available Spr [facility] [address] [place], [address], 12/17/2019 16:00:27 12/17/19 20 12/17/2019 6+ iStat Na 141 mmol/ L 138-14 6 Not Available [facility] [address] [place], [address], 12/17/2019 16:00:21 12/17/19 20 12/17/2019 6+ iStat K 3.1 mmol/ L 3.5-4. 9 Not Available [facility] [address] [place], [address], 12/17/2019 16:00:21 12/17/19 20 12/17/2019 6+ iStat cL 99 mmol/ L 98-109 Not Available [facility] [address] [place], [address], 12/17/2019 16:00:21 12/17/19 20 12/17/2019 6+ iStat BUN 17 mg/dL 8-26 Not Available [facility] [address] [place], [address], 12/17/2019 16:00:21 12/17/19 20 12/17/2019 6+ iStat glu 156 mg/dL 70-105 Not Available [facility] [address] [place], [address], 12/17/2019 16:00:21 12/17/19 20 12/17/2019 6+ iStat HCT 42 %_pcv 37-47 Not Available [facility] [address] [place], [address], 12/17/2019 16:00:21 12/17/19 20 12/17/2019 6+ iStat Hb 14.3 g/dL 12-17 Not Available [facility] [address], [place], [address], 12/17/2019 16:00:21 01/03/20 20 elect juan m diogr am No observ ation record ed. BARCODE Not Available 2019 18:58:30 Result Notes None recorded. Problems Name Problem SNOMED Code Status Onset Date Resolution Date Notes Provider Name and Address Organization Details Recorded Time Hypertensive disorder 49569007 Active 2019 ANN NEWSOME NP [address], [place], [address], [place] [facility] 0 14:49:52 Problem Notes None recorded. Procedures Surgical History Date Name Laterality Status Provider Name and Address Organization Details Recorded Time 12/17/19 20 Venipuncture - completed ANN NEWSOME NP [address], [place], [address], [place] [facility] 12/17/2019 16:00:11 12/17/19 20 ECG Interpretation - completed ANN NEWSOME NP [address], [place], [address], [place] [facility] 12/17/2019 15:50:02 Imaging Results [...] /min 160 mm[Hg] 90 mm[Hg] Not Available [facility] 0 14:55:18 Social History Question Answer Notes LastModified by Organizat ion Details LastModified Time Tobacco Smoking Status Former Smoker ANN NEWSOME NP [address] [place], [address], [place] [facility] 12/17/2019 14:52:13 Do You [...] Diagnosis/Indication Diagnosis SNOMED-CT Code Diagnosis ICD10 Code Diagnosis Note [id number] ANN NEWSOME NP [facility] [address] [place] [address] 12/17/2019 14:45:40 12/18/2019 10:47:28 Anxiety 63851570 F41.9 Palpitations 77649578 R0 0.2 Hypokalemia 97015302 E87 .6 Health Concerns Section Related Observation LastModified by Organization Detai ls LastModified Time None Recorded Concern Status LastModified by Organization Details LastModified Time None Recorded Advance Directives Directive N: Payers Insurance Date Sequence Insurance Name Policy Number Policy Kurtz Covered Member ID Kurtz Member ID Guarantor Name 12/16/2019 1 *SELF PAY* Azul Rothman [id number] Azul Rothman 08/03/2024 3 ( - INDEMNITY) Azul Rothman [id number] Azul Rothman 03/10/2020 2 [place] [facility] Azul Rothman [id number] Azul Rothman 03/10/2020 1 [place]IC[place] B[place] [employer] Azul Rothman [id number] Azul Rothman Notes Date Note Type Note [...] and goes. ANN NEWSOME, AMARIS [address], [place], [address], [place] [facility] 12/17/2019 16:01:54 OBGyn Episode No OBEpisode recorded.
--- OUTSIDE RECORDS SUMMARY | 2025-02-01 14:04 | XMS_ITS | Encounter Summary ---
Author Organization [facility] Address [address] [place] [address] Care Team Providers Care Ingot Supervisor Name Role Phone Sherice Steiner MD Primary Care Provider [phone] Encounter Details Date Type Department Care Team ([facility] st Contact Info) Description 01/31/2025 Telephone Gastroenterology - [address] [place] [phone] Geovanna Kennedy MD [address] [place] [phone] Social History Tobacco Use Types Packs/Day Years Used Date Smoking Tobacco: Former Smokeless Tobacco: Never Alcohol Use Standard Drinks/Week Comments No 0 (1 standard drink = 0.6 oz pur e alcohol) Comments Unknown Sex and Gender Information Value Date Recorded Sex Assigned at Not on file Legal Sex Female 10:10 AM EST Gender Identity Not on file Sexual Orientation Not on file documented as of this encounter Progress Notes * Karely Fox MA - 01/31/2025 3:54 PM EDT APPOINTMENT TOMORROW WITH 09 AT 340PM * Marci Elam - 01/31/2025 11:57 AM EDT Which provider do you see here? : TEVIN What symptoms are you having? : IBD AND COLITIS ISSUES AND WOULD LIKE TO KNOW WHAT SHE CAN TAKE OR CHANGE TO HELP When did symptoms start? : 1 MONTH Have you been seen for this issue before? : YES documented in this encounter Plan of Treatment Upcoming Encounters Date Type Department Care Team (Late st Contact Info) Description 02/01/2025 3:40 PM EDT Office Visit Gastroenterology - [address] [place] [phone] Geovanna Kennedy MD [address] [place] [address] 05/16/2025 3:40 PM EDT Office Visit Gastroenterology - [address] [place] [phone] Geovanna Kennedy MD [address] [place] [address] documented as of this encounter Visit Diagnoses Not on filedocumented in this encounter Care Teams Ingot Supervisor Relationship Specialty Start Date End Date Sherice Steiner MD [address] [place] [address] PCP - General Internal Medicine 02/11/18 documented as of this encounter
--- OUTSIDE RECORDS SUMMARY | 2025-02-01 14:04 | XMS_ITS | Clinical Summary ---
Author Organization [address] Address [address] [place] [address] Phone Care Team Providers Care Schedule Maker Name Role Phone Sherice Steiner MD Primary Care Provider [phone] Allergies No known active allergies Medications methotrexate 2.5 mg tablet Take 2.5 mg by mouth. Active linaCLOtide (Linzess) 290 mcg capsuleIndication s:Other constipation,Ulce rative pancolitis without complication (CMS/HCC V24, CMS/HCC V28) Take 1 capsule (290 mcg total) by mouth 1 (one) time each day. 30 each 11 5 10/20/19 26 Active Encounters Date Type Department Care Team Description 01/31/2025 Telephone Gastroenterology - [address] [place] [phone] Geovanna Kennedy MD 11/04/2024 Telephone Gastroenterology - [address] [place] [phone] Geovanna Kennedy MD from Last 3 Months Surgical History Surgery Date Site/Laterality Comments TOTAL KNEE ARTHROPLASTY PROCEDURE: MD ARTHRP KNE CONDYLE&PLATU MEDIAL&LAT COMPARTMENTS OTHER SURGICAL HISTORY PROCEDURE: MD SCREENING TSTS DIABETES MELLITUS RVWD RQSTD ORD ESOPHAGOGASTRODUODENOSCOPY 06/11/2023 medium HH, fundic polyps, bx- mild duodenitis COLONOSCOPY W/ BIOPSIES 06/11/2023 mildly active pancolitis COLONOSCOPY W/ BIOPSIES 11/11/2019 focal active colitis CHOLECYSTECTOMY HERNIA REPAIR Medical History Medical History Date Comments Iron deficiency anemia Ulcerative colitis (CMS/HCC V24, CMS/HCC V28) Chronic constipation Diabetes ([facility] V24, [facility] V28) HTN (hypertension) Depression Psoriasis Osteoporosis RLS (restless legs syndrome) GERD (gastroesophageal reflux disease) Spondyloarthritis Social History Tobacco Use Types Packs/Day Years Used Date Smoking Tobacco: Former Smokeless Tobacco: Never Alcohol Use Standard Drinks/Week Comments No 0 (1 standard drink = 0.6 oz pur e alcohol) Comments Unknown Sex and Gender Information Value Date Recorded Sex Assigned at Not on file Legal Sex Female 10:10 AM EST Gender Identity Not on file Sexual Orientation Not on file Obstetrics History Last Filed Vital Signs Vital Sign Reading Time Taken Comments Blood Pressure - - Pulse - - Temperature - - Respiratory Rate - - Oxygen Saturation - - Inhaled Oxygen Concentration - - Weight 90.3 kg (199 lb) 10/20/2024 7:55 AM EST Height 175.3 cm (5' 9 ) 10/20/2024 7:55 AM EST Body Mass Index 29.39 10/20/2024 7:55 AM EST Plan of Treatment Upcoming Encounters Date Type Department Care Team (Late st Contact Info) Description 02/01/2025 3:40 PM EDT Office Visit Gastroenterology - [address] [phone] Geovanna Kennedy MD [address] [place] [address] 05/16/2025 3:40 PM EDT Office Visit Gastroenterology - [address] [phone] Geovanna Kennedy MD [address] [place] [address] Health Maintenance Due Date Last Done Comments Breast Cancer Screening 1962 Diabetes: Annual GFR (Glomerular Filtration Rate) 1962 Diabetes: Annual Foot Exam 1972 Diabetes: Annual Retina Eye Exam 1972 Hepatitis A Vaccines (1 of 2 - Risk 2-dose series) 1981 Cervical Cancer Screening: Pap Smear 1983 Hepatitis B Vaccines (1 of 3 - Risk 3-dose series) 2022 Cholesterol Screening (Lipid Panel) 10/20/2023 Colorectal Cancer Screening: Colonoscopy 10/20/2023 Depression Screening 10/20/2023 HIV Screening 10/20/2023 Hepatitis C Screening 10/20/2023 Medicare Annual Wellness Visit 10/20/2023 Osteoporosis Screening (Bone Density Screening) 10/20/2023 Social Influencers of Health Screening 10/20/2023 COVID-19 Vaccine ( season) 2024 07/10/2023, 10/03/2022, 02/28/2022, Additional history exists Diabetes: Annual Urine Albumin-Creatinine Ratio (uACR) 10/20/2024 Diabetes: Blood Sugar Control Test (HGBA1C) 10/20/2024 Hypertension/CHF/CAD Annual BMP Blood Test 10/20/2024 Pneumococcal Vaccine: 50+ Years (3 of 3 - PCV20 or PCV21) 08/09/2025 08/09/2020, 09/11/2015 Pneumococcal Vaccine: Pediatrics (0 to 5 Years) and At-Risk Patients (6 to 64 Years) (3 of 3 - PCV20 or PCV21) 08/09/2025 08/09/2020, 09/11/2015 DTaP,Tdap,and Td Vaccines (2 - Td or Tdap) 09/06/2029 09/06/2019 Zoster Vaccines Completed 02/28/2022, 10/14/2021 RSV Immunization Adult Patients Completed 07/10/2023 Influenza Vaccine Completed 06/17/2024, , 06/23/2022, Additional history exists HIB Vaccines Aged Out No longer eligi ble based on patient's age to complete this topic HPV Vaccines Aged Out No longer eligi ble based on patient's age to complete this topic IPV Vaccines Aged Out No longer eligi ble based on patient's age to complete this topic MMR Vaccines Aged Out No longer eligi ble based on patient's age to complete this topic Meningococcal ACWY Vaccine Aged Out N o longer eligible based on patient's age to complete this topic Meningococcal B Vaccine Aged Out No l onger eligible based on patient's age to complete this topic RSV Immunization Patients Under 20 months Aged Out No longer eligible based on patient's age to complete this topic Varicella Vaccines Aged Out No longer eligible based on patient's age to complete this topic Insurance MEDICARE MEDICAID - [place] [facility] Care Teams Schedule Maker Relationship Specialty Start Date End Date Sherice Steiner MD [address] [place] [phone] PCP - General Internal Medicine 02/11/18
--- OUTSIDE RECORDS SUMMARY | 2025-02-01 14:04 | XMS_ITS ---
Author Name [facility] Organization Unknown Care Team Organization Name Specialty Phone Email Start Date End [facility] 09/26/2024
== END 2025-02-01 14:01 | disposition home or self-care (01) ==
LOC: HO.MAMMO 14:00
PROVIDERS: PCP Internal Medicine; Visit Provider Internal Medicine Rheumatology
DX: M81.0 Age-related osteoporosis without current pathological fracture (principal)
CPT/HCPCS: 77080

== ENCOUNTER → 2025-02-01 14:30 | Outpatient (BNV) | payer MEDICARE, MEDICAID, OTHER, SELFPAY | PROVIDERS: PCP Internal Medicine; Visit Provider Radiology Diagnostic Radiology | DX: E28.39 Other primary ovarian failure (principal) | CPT/HCPCS: 77080 ==

== ENCOUNTER 2025-02-09 08:13 | Outpatient (AMB) | payer MEDICARE, OTHER, MEDICAID, SELFPAY ==
--- NOTE | 2025-02-09 08:18 | MHC.OFFVIS ---
Vital Signs 02/09/25 08:19 Height 5 ft 9 in Weight 200 lb BMI 29.5 BP 110/70 Blood Pressure Location Rt brachial Position Sitting Pulse 85 Pulse Oximetry (%) 95 Oxygen Delivery Method Room Air Intake Visit Reasons: discuss symptoms Intake Note: Patient presents for follow up for spondyloarthropathy and sprain in left shoulder. Accompanied by: Self / Same As Patient Allergies No Known Allergies Allergy (Verified 02/09/25 08:19) HPI HPI discuss symptoms: Details: She has pain in her left shoulder that radiates to her neck. She also has pain localized to her biceps tendon. She is having difficulty dressing herself. She feels the swollen area anterior left shoulder. She had a conversation with the professional development director yesterday who wants to change Simponi to Skyrizi. There was no conversation about getting a colonoscopy. Evenity has been approved after appeal. Last Evenity 07/2024. [facility] Medical History Right rotator cuff tear Fracture of left hip requiring operative repair Left wrist fracture Right scapula fracture Vitamin D deficiency Ulcerative colitis Schamberg disease MRSA (methicillin resistant Staphylococcus aureus) Hypertension Hidradenitis suppurativa Hepatic steatosis GERD (gastroesophageal reflux disease) Diabetes mellitus Asthma, mild intermittent Anxiety Spondylosis Spondyloarthropathy Osteoporosis Osteoarthritis of both knees Osteoarthritis of ankle, left Low back pain Degeneration, intervertebral disc, lumbosacral Carpal tunnel syndrome Bursitis Arthralgia Surgical History S/P Achilles tendon repair History of open reduction and internal fixation (ORIF) procedure S/P left inguinal herniorrhaphy S/P cholecystectomy S/P tonsillectomy Family History Father Heart disease Diabetes Physical Exam Vital Signs: Last Vital Signs Pulse 85 02/09/25 08:19 BP 110/70 02/09/25 08:19 Pulse Ox 95 02/09/25 08:19 Oxygen Delivery Method Room Air 02/09/25 08:19 BMI result Body Mass Index 29.5 Const Other: General: Comfortable CVS: RRR Respiratory: clear to auscultation bilaterally. Good respiratory effort Skin: No lesions seen MSK: She continues to have left wrist synovitis but it is mild today. Tender MCPs and PIP knees. Tender left shoulder. Tender left biceps tendon. She has pain with abduction, internal rotation external rotation of left shoulder. Office Procedures AMB Joint Injection/Aspiration Joint Injection/Aspiration Details: Left shoulder joint Prep: site was prepped using aseptic technique Injected: 40 mg of, Kenalog, with 1 mL of and 1% plain lidocaine Procedure: Informed verbal consent was obtained. The patient tolerated the procedure well. Postprocedure protocol was discussed with patient. Procedure: The patient tolerated the procedure well Coding - Large joint Procedure code (CPT) selection complete AMB Tendon Injection Tendon Injection Details: Left biceps tendon Prep: site was prepped using aseptic technique Injected: 20 mg of, Kenalog, with 0.5 mL of and 1% plain lidocaine Procedure: Informed verbal consent was obtained. The patient tolerated the procedure well. Postprocedure protocol was discussed with patient. [id number]-[id number] Tendon Sheath Injection All charges added?: Procedure code (CPT) selection complete Office Meds lidocaine (PF) 10 mg/mL (1 %) injection solution Performing Provider: Manoj Wolfe MD Performing Location: [facility] Administered by: Manoj Wolfe MD on 02/09/25 12:39 Dose Route Admin Location Dispensed Lot Number Expiration Date [facility] Assistant Art Director 10 mg Infiltration 2 mL [id number] [facility] Kenalog 40 mg/mL suspension for injection Performing Provider: Manoj Wolfe MD Performing Location: [facility] Administered by: Manoj Wolfe MD on 02/09/25 12:39 Dose Route Admin Location Dispensed Lot Number Expiration Date [facility] Assistant Art Director 40 mg intra-articular 1 mL [id number] [facility] [employer] Kenalog 40 mg/mL suspension for injection Performing Provider: Manoj Wolfe MD Performing Location: [facility] Administered by: Manoj Wolfe MD on 02/09/25 12:39 Dose Route Admin Location Dispensed Lot Number Expiration Date [facility] Assistant Art Director 20 mg Tendon Sheath Inj. 1 mL [id number] [facility] lidocaine (PF) 10 mg/mL (1 %) injection solution Performing Provider: Manoj Wolfe MD Performing Location: [facility] Administered by: Manoj Wolfe MD on 02/09/25 12:39 Dose Route Admin Location Dispensed Lot Number Expiration Date [employer] Assistant Art Director 0.5 mL Infiltration 2 mL [id number] [facility] Assessment & Plan Assessment & Plan (1) Spondyloarthropathy: Comment: Spondyloarthritis is not controlled after 2nd dose of Simponi Aria. She is due for 3rd dose tomorrow. She had mild benefit with last prednisone course in improving inflammatory arthritis. Synovitis has improved in her hands and left wrists. Ulcerative colitis did not improve with prednisone course. She continues to have left shoulder and biceps pain limiting range of motion. She has tendinopathy due to infraspinatus, supraspinatus and subscapularis tendonitis and inflammatory arthritis contributing to left shoulder pain. She also has left biceps tendinopathy. We discussed treatment with local injections. Matte Cutter is considering changing Simponi Aria 2 Skyrizi. Per GI note there is a plan for colonoscopy prior to making the change. Patient does not report having a discussion with Dr. Kennedy about colonoscopy -she will confirm with GI office. Rheumatology history: Previously inflammatory arthritis and ulcerative colitis was in remission on methotrexate and Simponi Aria. Treatment was held when she developed left calcaneal fracture 01/2025 without healing complicated with postoperative infection to Achilles tendon 01/2024 s/p surgery. She is currently holding plan for revision because she does not want to be immobile for the duration of 8 weeks that she needs to wear a boot. Simponi Aria 07/2021- 12/2023 then resumed 12/16/2024. Sees GI Dr. Kennedy. Secondary treatment failure for inflammatory arthritis (L wrist) with Humira, which was prescribed by GI for ulcerative colitis. MTX was added due to inflammatory arthritis left ankle 07/2012-. Previously on methotrexate 20 mg once weekly, which was reduced to 15 mg once weekly due to transaminitis. History of hydradenitis suppurativa previously controlled on humira and remains in control on Simponi. She sees pain management for left ankle tendinopathy pain controlled with guided cortisone injection. She also receives geniculate nerve block for pain control for osteoarthritis bilateral knees. Simponi Aria resumed 12/16/2024. Code(s): M47.819 - Spondylosis without myelopathy or radiculopathy, site unspecified Category: Medical Plan: Patient received left glenohumeral joint and left biceps tendon cortisone injection today Patient will follow up with GI in regards to colonoscopy She will have Simponi Aria tomorrow If pain does not improve in 2 weeks with Simponi Aria and cortisone injections, I will prescribe prednisone course (prednisone course will begin at 40 mg daily with taper). It will then be appropriate to change Simponi Aria to Skyrizi due to secondary treatment failure Continue methotrexate 15 mg once weekly. I do not recommend discontinuing methotrexate. It is indicated to help control inflammatory arthritis. At this time she requires combination therapy. Labs for disease and drug monitoring ordered on high-risk medication Return to clinic in 1 month (2) Left shoulder pain: Comment: Uncontrolled pain. Due to uncontrolled spondyloarthritis and chronic rotator cuff tendinopathy per recent MRI 11/23/2024. Limiting range of motion of shoulder and ADLs Code(s): M25.512 - Pain in left shoulder Category: Medical Plan: Patient received left glenohumeral joint injection Return to clinic in 1 month (3) Strain of left biceps tendon: Comment: Chronic. Limiting function and ADLs Code(s): S46.212A - Strain of muscle, fascia and tendon of other parts of biceps, left arm, initial encounter Category: Medical Plan: Patient received cortisone injection to left biceps tendon Return to clinic in 1 month (4) Osteoporosis: Comment: Prior history of hyperparathyroidism and with multiple fragility fractures: She fell down 1 step and fractured her left ulnar styloid, left radial head, left base of 5th metatarsal and elbow. She had right hip fracture and 2 ribs were fractured 09/02/2024, and left calcaneus was fractured January 2024. High risk for future fractures. Forteo and Tymlos contraindicated due to hyperparathyroidism. She had Romosuzumab 02/2024, 05/25/2024, 07/15/2024, and 08/12/2024. Evenity was approved after appealx2. We reviewed recent bone density. She has improvement of bone density and lumbar spine. There is worsening bone density in left femoral neck and total hip. She has not completed treatment with Evenity. I expect more gains with full treatment, which will then need to be followed by treatment with Prolia to consolidate gains and for further benefit. Code(s): M81.0 - Age-related osteoporosis without current pathological fracture Category: Medical Qualifiers: Osteoporosis type: unspecified Presence of current pathological fracture: unspecified Qualified Code(s): M81.0 - Age-related osteoporosis without current pathological fracture Plan: Schedule nurse visit for Romosuzumab in 2 weeks Continue vitamin-D 1000 IU daily per endocrine recommendations [facility]. She has had hypercalcemia in the past. She is not taking calcium supplement. Obtaining last clinic note Return to clinic in 3 months Orders: Orders Complete Blood Count Auto Diff Today Z79.60 - alf (current) use of unspecified immunomodulators and immunosuppressants Creatinine Today Z79.60 - equipment operator intermodal yard (current) use of unspecified immunomodulators and immunosuppressants AMB Joint Injection/Aspiration Today M25.512 - Pain in left shoulder, M47.819 - Spondylosis without myelopathy or radiculopathy, site unspecified AMB Tendon Injection Today S46.212A - Strain of muscle, fascia and tendon of other parts of biceps, left arm, initial encounter Alanine Aminotransferase Today Z79.60 - equipment operator intermodal yard (current) use of unspecified immunomodulators and immunosuppressants Aspartate Amino Transferase Today Z79.60 - alf (current) use of unspecified immunomodulators and immunosuppressants Erythrocyte Sedimentation Rate Today Z79.899 - Other exterminator termite (current) drug therapy C Reactive Protein Today Z79.899 - Other senior care (current) drug therapy Coding Level of Care Code Est Pt Level 4 (29665) Complex EM visit Add On G2211 Diagnoses Spondyloarthropathy M47.819 Left shoulder pain M25.512 Strain of left biceps tendon S46.212A Osteoporosis, unspecified osteoporosis type, unspecified pathological fracture presence M81.0 Osteoporosis type: unspecified Presence of current pathological fracture: unspecified CPT Codes Coding - 42927 Large joint: 38295 - Large joint ([id number]) Tendon Injection - Tendon Injection 1: 35644-Nvpuhj Tendon Sheath Injection ([id number]) Time Spent (min) 30
[2025-02-09 08:19] VITALS: BP 110/70; PULSE 85; O2SAT 95; BMI 29.5
--- OUTSIDE RECORDS SUMMARY | 2025-02-09 08:21 | XMS_ITS | Data Portability ---
Author Organization [place] [facility] Address [address] [place] [address] Care Team Providers Care Coil Winder Strap Name Role Phone ANN MILLER Primary Care [...] CP is substernal and non-reproducible, no active AR noted on EKG at time of visit [...] opted to travel by private care to [facility], expect called into [facility]. Patients PCP contacted and updated on patient [...] mary [facility] - Home, [address] [facility], [place], [address], 0 16:01:44 creatin ine, blood mary Spr - Home, [address] [facility], [place], [address], 0 16:01:43 Referral None recorde d. Procedures None recorde d. Surgeries None recorde d. Imaging None recorde d. Medication Orders None recorde d. Patient TargetsNo targets recorded. Patient Instructions Encounter Date Encounter Id Patient Instructions Last Modified By Organization Details Last Modified Time 12/17/2019 [id number] Anxiety What you should know: Anxiety is [...] symptoms are persistent. AFTER YOUR VISIT WITH [facility] Medicines: We may have prescribed medicines to help you relax. Take your medicine as directed. [facility] cannot refill these medicines for you. Contact [...] in your condition between 8am-10pm, please call [email or web address] at [phone] to help navigate your care. [email or web address] Not available 12/17/2019 14:52:34 Reason for Referral None Reported. Results Created Date Observation Date Name Description Value Unit Range Abnormal Flag Note LastModifiedBy Organization Detail LastModifiedTime 12/17/19 20 12/17/2019 creat inine , blood crea 0.9 mg/dL 0.6-1. 3 Not Available Spr - Home [address] [place], [address], 12/17/2019 16:00:27 12/17/19 20 12/17/2019 6+ iStat Na 141 mmol/ L 138-14 6 Not Available Spr - Home [address] [place], [address], 12/17/2019 16:00:21 12/17/19 20 12/17/2019 6+ iStat K 3.1 mmol/ L 3.5-4. 9 Not Available Spr - Home [address] [place], [address], 12/17/2019 16:00:21 12/17/19 20 12/17/2019 6+ iStat cL 99 mmol/ L 98-109 Not Available Spr - Home [address] [place], [address], 12/17/2019 16:00:21 12/17/19 20 12/17/2019 6+ iStat BUN 17 mg/dL 8-26 Not Available Spr - Home [address] [place], [address], 12/17/2019 16:00:21 12/17/19 20 12/17/2019 6+ iStat glu 156 mg/dL 70-105 Not Available [facility] [address] [place], [address], 12/17/2019 16:00:21 12/17/19 20 12/17/2019 6+ iStat HCT 42 %_pcv 37-47 Not Available Spr - Home [address] [place], [address], 12/17/2019 16:00:21 12/17/19 20 12/17/2019 6+ iStat Hb 14.3 g/dL 12-17 Not Available [facility] [address], [place], [address], 12/17/2019 16:00:21 01/03/20 20 elect juan m diogr am No observ ation record ed. BARCODE Not Available 2019 18:58:30 Result Notes None recorded. Problems Name Problem SNOMED Code Status Onset Date Resolution Date Notes Provider Name and Address Organization Details Recorded Time Hypertensive disorder 73685823 Active 2019 ANN NEWSOME NP [address], [place], [address], [place] [facility] 0 14:49:52 Problem Notes None recorded. Procedures Surgical History Date Name Laterality Status Provider Name and Address Organization Details Recorded Time 12/17/19 20 Venipuncture - completed ANN NEWSOME NP [address], [place], [address], [place] [facility] 12/17/2019 16:00:11 12/17/19 20 ECG Interpretation - completed ANN NEWSOME NP [address], [place], [address], [place] [facility] 12/17/2019 15:50:02 Imaging Results [...] Former Smoker ANN NEWSOME NP [address] [place], [address], [place] [facility] 12/17/2019 14:52:13 Do You [...] available 12/16 14:52:06 Medical History Condition Response Stroke N Depression Y COPD N Asthma Y High Cholesterol N Pulmonary Embolism N Hypertension Y Kidney Disease N Gynecological HistoryNo gynecological history recorded. Obstetrics History GPAL:G 0 P 0 0 0 0 Past Encounters Encounter ID Performer Location Encounter Start Date Encounter Closed Date Diagnosis/Indication Diagnosis SNOMED-CT Code Diagnosis ICD10 Code Diagnosis Note [id number] ANN NEWSOME NP [facility] [address] [place] [address] 12/17/2019 14:45:40 12/18/2019 10:47:28 Anxiety 32560025 F41.9 Palpitations 87176039 R0 0.2 Hypokalemia 03829225 E87 .6 Health Concerns Section Related Observation LastModified by Organization Detai ls LastModified Time None Recorded Concern Status LastModified by Organization Details LastModified Time None Recorded Advance Directives Directive N: Payers Insurance Date Sequence Insurance Name Policy Number Policy Kurtz Covered Member ID Kurtz Member ID Guarantor Name 12/16/2019 1 *SELF PAY* Azul Rothman [id number] Azul Rothman 08/03/2024 3 ( - INDEMNITY) Azul Rothman [id number] Azul Rothman 03/10/2020 2 [place] [facility] Azul Rothman [id number] Azul Rothman 03/10/2020 1 [place]IC[place] B[place] [employer] Azul Rothman [id number] Azul Rothman Notes Date Note Type Note [...] goes. ANN NEWSOME, AMARIS [address], [place], [address], [place] [facility] 12/17/2019 16:01:54 OBGyn Episode No OBEpisode recorded.
--- OUTSIDE RECORDS SUMMARY | 2025-02-09 08:21 | XMS_ITS | Clinical Summary ---
Author Organization [facility] [place] [address] [facility] Address [address] [place] [address] Phone Care Team Providers Care Tailings Man Name Role Phone Sherice Steiner MD Primary Care Provider [phone] Allergies No known active allergies Medications methotrexate 2.5 mg tablet Take 2.5 mg by mouth. Active linaCLOtide (Linzess) 290 mcg capsuleIndication s:Other constipation,Ulce rative pancolitis without complication (CMS/HCC V24, CMS/HCC V28) Take 1 capsule (290 mcg total) by mouth 1 (one) time each day. 30 each 5 10/20/19 26 Active spironolactone (ALDACTONE) 25 mg tablet Take 1 tablet (25 mg total) by mouth 1 (one) time each day. Active pantoprazole (PROTONIX) 40 mg EC tablet Take 1 tablet (40 mg total) by mouth 2 (two) times a day. Active losartan (COZAAR) 50 mg tablet Take 1 tablet (50 mg total) by mouth 1 (one) time each day. Active LORazepam (ATIVAN) 0.5 mg tablet Take 1 tablet (0.5 mg total) by mouth. 4 Active golimumab 50 mg/0.5 mL syringe Inject 50 mg under the skin. Active folic acid (FOLVITE) 1 mg tablet Take 2 tablets (2,000 mcg total) by mouth 1 (one) time each day. Active ferrous gluconate (FERGON) 240 mg (27 mg iron) tablet Take 1 tablet (27 mg total) by mouth 1 (one) time each day. 5 Active ergocalciferol (VITAMIN D-2) 1,250 mcg (50,000 unit) capsule 1 CAPSULE BY MOUTH EVERY THURSDAY AND THURSDAY Active Jardiance 10 mg tablet Take 1 tablet (10 mg total) by mouth. 4 Active DULoxetine (CYMBALTA) [address] capsule Take 1 capsule (30 mg total) by mouth. 4 Active DULoxetine (CYMBALTA) [address] capsule Take 1 capsule (60 mg total) by mouth. 4 Active Trulicity 3 mg/0.5 mL pen injector injection INJECT CONTENTS OF 1 PRE-FILLED SYRINGE WEEKLY, ROTATING INJECTION SITES 5 Active cyclobenzaprine (FLEXERIL) 5 mg tablet TAKE 1 TABLET BY MOUTH EVERY DAY AT BEDTIME NEEDED FOR MUSCLE SPASM 5 Active amLODIPine (NORVASC) 5 mg tablet Active acetaminophen (TYLENOL) 500 mg tablet 1 tablet (500 mg total). 3 Active diphenoxylate-atr opine (LOMOTIL) 2.5-0.025 mg per tabletIndications :Ulcerative pancolitis without complication (CMS/HCC V24, CMS/HCC V28) Take 2 tablets by mouth 4 (four) times a day if needed for diarrhea. Max Daily Amount: 8 tablets 120 tablet 1 5 04/02/20 25 Active Encounters Date Type Department Care Team Description 02/07/2025 Telephone Gastroenterology - [address] [address] Karely Fox [place] 02/01/2025 3:40 PM EDT Office Visit Gastroenterology - [address] [address] Geovanna Kennedy MD Ulcerative pancolitis without complication (CMS/HCC V24, CMS/HCC V28) (Primary Dx); Chronic constipation 01/31/2025 Telephone Gastroenterology - [address] [place] [address] Geovanna Kennedy MD from Last 3 Months Surgical History Surgery Date Site/Laterality Comments TOTAL KNEE ARTHROPLASTY PROCEDURE: AK ARTHRP KNE CONDYLE&PLATU MEDIAL&LAT COMPARTMENTS OTHER SURGICAL HISTORY PROCEDURE: AK SCREENING TSTS DIABETES MELLITUS RVWD RQSTD ORD ESOPHAGOGASTRODUODENOSCOPY 06/11/2023 medium HH, fundic polyps, bx- mild duodenitis COLONOSCOPY W/ BIOPSIES 06/11/2023 mildly active pancolitis COLONOSCOPY W/ BIOPSIES 11/11/2019 focal active colitis CHOLECYSTECTOMY HERNIA REPAIR TOTAL SHOULDER ARTHROPLASTY 05/22/2023 - 06/20/2023 HIP FRACTURE SURGERY 08/21/2023 - 09/20/2023 ORIF ANKLE FRACTURE 01/20/2024 - 02/19/2024 with achilled tendon repair Medical History Medical History Date Comments Iron deficiency anemia Ulcerative colitis ([facility] V24, [facility] V28) Chronic constipation Diabetes ([facility] V24, [facility] V28) HTN (hypertension) Depression Psoriasis Osteoporosis RLS [...] - Inhaled Oxygen Concentration - - Weight 90.7 kg (200 lb) 02/01/2025 3:27 PM EDT Height 175.3 cm (5' 9 ) 02/01/2025 3:27 PM EDT Body Mass Index 29.53 02/01/2025 3:27 PM EDT Plan of Treatment Upcoming Encounters Date Type Department Care Team (Late st Contact Info) Description 05/16/2025 3:40 PM EDT Office Visit Gastroenterology - [address] [facility] [address] [place] [phone] Geovanna Kennedy MD 299 [facility] [address] [place] [address] Health Maintenance Due Date Last Done Comments [...] on patient's age to complete this topic Procedures Procedure Name Priority Date/Time Associated Diagnosis Comments CALPROTECTIN, STOOL Routine 02/02/2025 3:17 PM EDT Ulcerative pancolitis without complication ([facility] V24, [facility] V28) from Last 3 Months Results * Calprotectin, stool (02/02/2025 3:17 PM EDT) Calprotectin, Fecal 42.2 <50 mcg/g 02/06/2025 2:09 PM EDT [facility] Comment: <50 mcg/g ?Normal 50 - 120 mcg/g ?? Borderline >120 mcg/g ? Abnormal Borderline results suggest repeat testing in 4 to 6 weeks. Test performed at [facility], [address] [place], [place] ??[address] ? [phone] Elaina Esparza MD, PhD - Product Steward Stool Rectum structure / Unknown Non-blood Collection / Unknown 02/02/2025 3:17 PM EDT 02/02/2025 4:07 PM EDT us Geovanna Kennedy MD LAB BODY FLUIDS AND STOOLS ORD ERABLES Final Result [facility] [address] [place] [address] from Last 3 Months Insurance MEDICARE MEDICA[place] - [place] [facility] Care Teams Tailings Man Relationship Specialty Start Date End Date Sherice Steiner MD [address] [place] [phone] PCP - General Internal Medicine 02/11/18
--- OUTSIDE RECORDS SUMMARY | 2025-02-09 08:21 | XMS_ITS | Encounter Summary ---
Author Organization [facility] Address [address] [place] [address] Care Team Providers Care Reference Services Head Name Role Phone Sherice Steiner MD Primary Care Provider Encounter Details Date Type Department Care Team (Late st Contact Info) Description 02/07/2025 Telephone Gastroenterology - [address] [place] [address] Karely Fox MA Social History Tobacco Use Types Packs/Day Years [...] Progress Notes * Karely Fox MA - 02/07/2025 8:09 AM EDT Spoke with pt per Dr Kennedy fecal calprotectin totally normal! This makes active ulcerative colitis much less likely. Less see how things play out with more time and Lomotil as needed. Call me before April if things do not slowly improve. * Karely Fox MA - 02/07/2025 8:09 AM EDT ----- Message from Tyrone Kennedy MD sent at 02/06/2025 3:46 PM EDT ----- Fecal calprotectin totally normal! This makes active ulcerative colitis much less likely. Less see how things play out with more time and Lomotil as needed. Call me before April if things do not slowly improve. documented in this encounter Plan of Treatment Upcoming Encounters Date Type Department Care Team (Late st Contact Info) Description 05/16/2025 3:40 PM EDT Office Visit Gastroenterology - [address] [address] Geovanna Kennedy MD [address] [address] documented as of this encounter Visit Diagnoses Not on filedocumented in this encounter Care Teams Reference Services Head Relationship Specialty Start Date End Date Sherice Steiner MD [address] [place] [phone] PCP - General Internal Medicine 02/11/18 documented as of this encounter
== END 2025-02-09 09:12 | disposition home or self-care (01) ==
LOC: HO.RHES 08:13
PROVIDERS: PCP Internal Medicine; Visit Provider Internal Medicine Rheumatology
DX: M47.819 Spondylosis without myelopathy or radiculopathy, site unspecified (principal); M25.512 Pain in left shoulder; S46.212A Strain of muscle, fascia and tendon of other parts of biceps, left arm, initial encounter; M81.0 Age-related osteoporosis without current pathological fracture
CPT/HCPCS: 20550; 20610; 99214

== ENCOUNTER 2025-02-09 08:13 | Outpatient (REF) | payer MEDICARE, OTHER, MEDICAID, SELFPAY ==
--- OUTSIDE RECORDS SUMMARY | 2025-02-09 09:28 | XMS_ITS | Encounter Summary ---
Author Organization [facility] Address [address] [place] [address] Care Team Providers Care Switching Operator Name Role Phone Sherice Steiner MD Primary Care Provider [phone] Encounter Details Date Type Department Care Team (Late st Contact Info) Description 02/07/2025 Telephone Gastroenterology - [address] [place] [address] Karely Fox MA Social History [...] PM EDT Office Visit Gastroenterology - [address] [address] Geovanna Kennedy MD [address] [address] documented as of this encounter Visit Diagnoses Not on filedocumented in this encounter Care Teams Switching Operator Relationship Specialty Start Date End Date Sherice Steiner MD [address] [place] [phone] PCP - General Internal Medicine 02/11/18 documented as of this encounter
--- OUTSIDE RECORDS SUMMARY | 2025-02-09 09:28 | XMS_ITS | Clinical Summary ---
Author Organization [facility] 299 [facility] Address [address] [place] [address] Phone Care Team Providers Care Coin Purse Assembler Name Role Phone Sherice Steiner MD Primary Care Provider [phone] Allergies No known active allergies Medications methotrexate [...] Team Description 02/07/2025 Telephone Gastroenterology - [address] [address] Karely Fox MA 02/01/2025 3:40 PM EDT Office Visit Gastroenterology - [address] [address] Geovanna Kennedy MD Ulcerative pancolitis without complication (CMS/HCC V24, CMS/HCC V28) (Primary Dx); Chronic constipation 01/31/2025 Telephone Gastroenterology - [address] [place] [address] Geovanna Kennedy MD from Last 3 Months Surgical History Surgery Date Site/Laterality Comments TOTAL KNEE ARTHROPLASTY PROCEDURE: [place] ARTHRP KNE CONDYLE&PLATU MEDIAL&LAT COMPARTMENTS OTHER SURGICAL HISTORY PROCEDURE: [place] SCREENING TSTS DIABETES MELLITUS RVWD RQSTD ORD [...] Date Comments Iron deficiency anemia Ulcerative colitis ([facility] V24, [facility] V28) Chronic constipation Diabetes ([facility] V24, [facility] V28) HTN (hypertension) Depression Psoriasis Osteoporosis RLS [...] Office Visit Gastroenterology - 299 [address] 299 [facility] [address] [place] [phone] Geovanna Kennedy MD 299 [facility] [address] [place] [address] Health Maintenance Due Date Last Done Comments [...] 3:17 PM EDT Ulcerative pancolitis without complication ([facility] V24, [facility] V28) from Last 3 Months Results * Calprotectin, stool (02/02/2025 3:17 PM EDT) Calprotectin, Fecal 42.2 <50 mcg/g 02/06/2025 2:09 PM EDT [facility] Comment: <50 mcg/g ?Normal 50 - 120 mcg/g ?? Borderline >120 mcg/g ? Abnormal Borderline results suggest repeat testing in 4 to 6 weeks. Test performed at [facility], [address] [place], [place] ??[address] ? [phone] Elaina Esparza MD, PhD - Management Internship Stool Rectum structure / Unknown Non-blood Collection / Unknown 02/02/2025 3:17 PM EDT 02/02/2025 4:07 PM EDT us Geovanna Kennedy MD LAB BODY FLUIDS AND STOOLS ORD ERABLES Final Result [facility] [address] [place] [address] from Last 3 Months Insurance MEDICARE MEDICA[place] - [place] [facility] Care Teams Coin Purse Assembler Relationship Specialty Start Date End Date Sherice Steiner MD [address] [place] [phone] PCP - General Internal Medicine 02/11/18
[2025-02-09 17:48] LABS: MANUAL DIFF FLAG NO
[2025-02-09 18:11] LABS: Alanine Aminotransferase 39 U/L (0-31); Aspartate Amino Transferase 55 U/L (5-31); C Reactive Protein 0.28 mg/dL (< or = 0.50); Estimated Glomerular Filt Rate > 60
[2025-02-09 18:13] LABS: Basophils Absolute Auto 0.1 X10*3/uL (0.0-0.2); Basophils Percent Auto 0.9 % (0-2); Eosinophils Absolute Auto 0.1 X10*3/uL (0.0-0.4); Eosinophils Percent Auto 1.3 % (0-4); Hematocrit 39.3 % (37.0-47.0); Hemoglobin 11.6 g/dl (12.0-16.0); Imm Gran Abs Auto 0.04 X10*3/uL (0.00-0.03); Imm Gran Pct Auto 0.5 % (0.0-0.4); Lymphocytes Absolute Auto 1.8 X10*3/uL (1.2-4.9); Lymphocytes Percent Auto 24.5 % (20-40); Mean Corpuscular HGB Conc 29.5 g/dl (31.0-35.0); Mean Corpuscular Hemoglobin 23.5 pg (27.0-33.0); Mean Corpuscular Volume 79.6 fL (80.0-98.0); Mean Platelet Volume 11.1 fL (9.4-12.3); Monocytes Absolute Auto 0.6 X10*3/uL (0.1-1.2); Monocytes Percent Auto 8.4 % (2-11); Neutrophils Absolute Auto 4.8 x10*3/uL (2.0-8.3); Neutrophils Percent Auto 64.4 % (45-73); Platelet Count 377 X10*3/uL (160-400); Red Blood Count 4.94 X10*6/uL (4.20-5.50); Red Cell Distribution Width 17.4 % (11.0-16.0); White Blood Count 7.5 X10*3/uL (4.8-10.8)
[2025-02-09 18:37] LABS: Erythrocyte Sedimentation Rate 19 MM/HR (0-20)
== END 2025-02-09 08:14 | disposition home or self-care (01) ==
LOC: HO.HKASLDS 08:13
PROVIDERS: PCP Internal Medicine; Visit Provider Internal Medicine Rheumatology
DX: M25.512 Pain in left shoulder (principal); M47.819 Spondylosis without myelopathy or radiculopathy, site unspecified; M81.0 Age-related osteoporosis without current pathological fracture; S46.212A Strain of muscle, fascia and tendon of other parts of biceps, left arm, initial encounter; Z79.60 Long term (current) use of unspecified immunomodulators and immunosuppressants; Z79.899 Other long term (current) drug therapy
CPT/HCPCS: 20550; 20610; 36415; 82565; 84450; 84460; 85025; 85652; 86140; 99212; J2003; J3300

== ENCOUNTER 2025-03-15 09:31 | Outpatient (REF) | payer MEDICARE, MEDICAID, OTHER, SELFPAY ==
[2025-03-15 18:31] LABS: Alanine Aminotransferase 45 U/L (0-31); Albumin Level 4.8 g/dL (3.5-5.0); Alkaline Phosphatase 167 U/L (39-117); Aspartate Amino Transferase 50 U/L (5-31); Bilirubin Direct 0.2 mg/dL (0.0-0.5); Bilirubin Total 0.4 mg/dL (0.0-1.0); Total Protein 7.9 g/dL (6.5-8.0)
== END 2025-03-15 09:32 | disposition home or self-care (01) ==
LOC: HO.HKASLDS 09:31
PROVIDERS: PCP Internal Medicine Rheumatology; Visit Provider Internal Medicine Rheumatology
DX: R74.01 Elevation of levels of liver transaminase levels (principal); M47.819 Spondylosis without myelopathy or radiculopathy, site unspecified; M81.0 Age-related osteoporosis without current pathological fracture; S46.212A Strain of muscle, fascia and tendon of other parts of biceps, left arm, initial encounter
CPT/HCPCS: 36415; 80076; 99212

== ENCOUNTER 2025-03-15 09:31 | Outpatient (AMB) | payer MEDICARE, MEDICAID, OTHER, SELFPAY ==
[2025-03-15 09:32] VITALS: BP 120/80; PULSE 113; O2SAT 95; BMI 29.4
--- NOTE | 2025-03-15 09:32 | A.OFFVIS_ITS ---
Vital Signs 03/15/25 09:32 Height 5 ft 9 in Weight 199 lb BMI 29.4 BP 120/80 Blood Pressure Location Lt brachial Position Sitting Pulse 113 H Pulse Source Pulse Oximeter Pulse Oximetry (%) 95 Oxygen Delivery Method Room Air Intake Visit Reasons: 3 Months Intake Note: Patient presents for follow up for spondyloarthropathy and sprain in left shoulder. Allergies No Known Allergies Allergy (Verified 03/15/25 09:32) HPI HPI 3 Months: Details: MS 30 minutes then off and on during the day Left shoulder pain improved after cortisone injections. Left biceps pain and triceps pain returned 5/10 intensity. Left wrist swelling has subsided. Joints and ulcerative colitis symptoms have improved since being back on Simponi after 3rd maintenance dose. Previously her bowels were liquid and now they are more formed. She reports that serum testing for ulcerative colitis activity was negative. There is currently no plan to do a colonoscopy. She is due for her routine colonoscopy every 5 years next year. [facility] Medical History Right rotator cuff tear Fracture of left hip requiring operative repair Left wrist fracture Right scapula fracture Vitamin D deficiency Ulcerative colitis Schamberg disease MRSA (methicillin resistant Staphylococcus aureus) Hypertension Hidradenitis suppurativa Hepatic steatosis GERD (gastroesophageal reflux disease) Diabetes mellitus Asthma, mild intermittent Anxiety Spondylosis Spondyloarthropathy Osteoporosis Osteoarthritis of both knees Osteoarthritis of ankle, left Low back pain Degeneration, intervertebral disc, lumbosacral Carpal tunnel syndrome Bursitis Arthralgia Surgical History S/P Achilles tendon repair History of open reduction and internal fixation (ORIF) procedure S/P left inguinal herniorrhaphy S/P cholecystectomy S/P tonsillectomy Family History Father Heart disease Diabetes Physical Exam Vital Signs: Last Vital Signs Pulse 113 H 03/15/25 09:32 BP 120/80 03/15/25 09:32 Pulse Ox 95 03/15/25 09:32 Oxygen Delivery Method Room Air 03/15/25 09:32 BMI result Body Mass Index 29.4 Const Other: General: Comfortable CVS: RRR Respiratory: clear to auscultation bilaterally. Good respiratory effort Skin: No lesions seen MSK: Tender to palpate left wrist. She has full range of motion of upper extremity and lower extremities. Tender left biceps muscle and triceps muscle. No tenderness of biceps tendon. Negative younger seen test. Valgus knee deformity present. Tender to palpate left ankle along peroneus brevis/longus tendon. She has left Achilles tendon both present. No MTP tenderness. Assessment & Plan Assessment & Plan (1) Spondyloarthropathy: Comment: Spondyloarthritis is controlled after 3rd maintenance dose of Simponi Aria. Ulcerative colitis is also better controlled. Dr. Nasir KEY was considering changing Simponi to Skyrizi. At this time patient has better control of both diseases with current treatment. I am reluctant to make the change. She had mild transaminitis in January 2025. She has held methotrexate. She has background hepatic steatosis. Rheumatology history: Previously inflammatory arthritis and ulcerative colitis was in remission on methotrexate and Simponi Aria. Treatment was held when she developed left calcaneal fracture 01/2025 without healing complicated with postoperative infection to Achilles tendon 01/2024 s/p surgery. She is currently holding plan for revision because she does not want to be immobile for the duration of 8 weeks that she needs to wear a boot. Simponi Aria 07/2021- 12/2023 then resumed 12/16/2024. Sees GI Dr. Kennedy. Secondary treatment failure for inflammatory arthritis (L wrist) with Humira, which was prescribed by GI for ulcerative colitis. MTX was added due to inflammatory arthritis left ankle 07/2012-. Previously on methotrexate 20 mg once weekly, which was reduced to 15 mg once weekly due to transaminitis. History of hydradenitis suppurativa previously controlled on humira and remains in control on Simponi. She sees pain management for left ankle tendinopathy pain controlled with guided cortisone injection. She also receives geniculate nerve block for pain control for osteoarthritis bilateral knees. Simponi Aria resumed 12/16/2024. Code(s): M47.819 - Spondylosis without myelopathy or radiculopathy, site unspecified Category: Medical Plan: Continue Simponi Aria 2 milligram/kilogram every 8 weeks IV Hold methotrexate 15 mg once weekly and folic acid until liver function tests results are back I have placed a call to Dr. Best to discuss medical management of both spondyloarthritis and ulcerative colitis. She is currently on vacation this week. I will be forwarding my clinic note to Dr. Best. Patient will be repeating colonoscopy next year (every 5 years). She is due for labs for drug monitoring on high-risk medication in 2 months Return to clinic in 3 months (2) Transaminitis: Code(s): R74.01 - Elevation of levels of liver transaminase levels Category: Medical Plan: Repeat LFTs ordered Continue to hold methotrexate until lab results are back (3) Osteoporosis: Comment: Prior history of hyperparathyroidism and with multiple fragility fractures: She fell down 1 step and fractured her left ulnar styloid, left radial head, left base of 5th metatarsal and elbow. She had right hip fracture and 2 ribs were fractured 09/02/2024, and left calcaneus was fractured January 2024. High risk for future fractures. Forteo and Tymlos contraindicated due to hyperparathyroidism. She had Romosuzumab 02/2024, 05/25/2024, 07/15/2024, and 08/12/2024. Evenity was approved after appealx2. We reviewed recent bone density 02/01/2025. She has improvement of bone density and lumbar spine. There is worsening bone density in left femoral neck and total hip. She has not completed treatment with Evenity. I expect more gains with full treatment, which will then need to be followed by treatment with Prolia to consolidate gains and for further benefit. Code(s): M81.0 - Age-related osteoporosis without current pathological fracture Category: Medical Qualifiers: Osteoporosis type: unspecified Presence of current pathological fracture: unspecified Qualified Code(s): M81.0 - Age-related osteoporosis without current pathological fracture Plan: Evenity has been approved. Patient has to call [facility] specialty pharmacy to authorize our facility to communicate on her behalf for the 1st ordered. She will need to be scheduled for nurse teaching visit as soon as she is able to start evenity. Continue vitamin-D 1000 IU daily per endocrine recommendations [facility]. She has had hypercalcemia in the past. She is not taking calcium supplement. Return to clinic in 3 months (4) Strain of left biceps muscle: Comment: Discussed diagnosis and management Code(s): S46.212A - Strain of muscle, fascia and tendon of other parts of biceps, left arm, initial encounter Category: Medical Qualifiers: Encounter type: initial encounter Qualified Code(s): S46.212A - Strain of muscle, fascia and tendon of other parts of biceps, left arm, initial encounter Plan: PT ordered local to her home per patient's request Return to clinic in 3 months (5) Strain of left biceps tendon: Comment: Chronic. Limiting function and ADLs. Tendon pain has resolved with cortisone into. She continued to have pain in her biceps muscle. We discussed conservative management Code(s): S46.212A - Strain of muscle, fascia and tendon of other parts of biceps, left arm, initial encounter Category: Medical Plan: PT ordered for her to have done local to her home per patient's request Return to clinic in 3 months (6) Tendinitis of left peroneus longus tendon: Comment: Chronic. She has had cortisone injections from pain management at [facility] in the past Code(s): M76.72 - Peroneal tendinitis, left leg Category: Medical Plan: PT ordered with modalities, manual, TENs unit exercise strengthening program Return to clinic in 3 months (7) Tendinitis of left peroneus brevis tendon: Comment: Chronic. She has had cortisone injections from pain management at [facility] in the past Code(s): M76.72 - Peroneal tendinitis, left leg Category: Medical Plan: PT ordered with modalities, manual and TENs unit Return to clinic in 3 months Orders: Orders Liver Panel Today R74.01 - Elevation of levels of liver transaminase levels PT Evaluation and Treatment Today M76.72 - Peroneal tendinitis, left leg, S46.212A - Strain of muscle, fascia and tendon of other parts of biceps, left arm, initial encounter, S46.312A - Strain of muscle, fascia and tendon of triceps, left arm, initial encounter Medications: Discontinued prednisone Take 4 tablets daily for 1 week, 3 tablets daily for 1 week, 2 tablets daily for 1 week, 1 tablet daily for 1 week then stop. Take prednisone with food. Discontinued Reason: Doctor's Order 5 mg PO DIRECTED 70 tabs 0RF Coding Level of Care Code Est Pt Level 4 (50926) Complex EM visit Add On G2211 Diagnoses Spondyloarthropathy M47.819 Transaminitis R74.01 Osteoporosis, unspecified osteoporosis type, unspecified pathological fracture presence M81.0 Osteoporosis type: unspecified Presence of current pathological fracture: unspecified Strain of left biceps muscle, initial encounter S46.212A Encounter type: initial encounter Strain of left biceps tendon S46.212A Tendinitis of left peroneus longus tendon M76.72 Tendinitis of left peroneus brevis tendon M76.72
== END 2025-03-15 10:08 | disposition home or self-care (01) ==
LOC: HO.RHES 09:31
PROVIDERS: PCP Internal Medicine; Visit Provider Internal Medicine Rheumatology
DX: M47.819 Spondylosis without myelopathy or radiculopathy, site unspecified (principal); R74.01 Elevation of levels of liver transaminase levels; M81.0 Age-related osteoporosis without current pathological fracture; S46.212A Strain of muscle, fascia and tendon of other parts of biceps, left arm, initial encounter; M76.72 Peroneal tendinitis, left leg
CPT/HCPCS: 99214; G2211

== ENCOUNTER 2025-03-30 13:58 | Outpatient (AMB) | payer MEDICARE, MEDICAID, OTHER, SELFPAY ==
--- OUTSIDE RECORDS SUMMARY | 2025-03-30 14:07 | XMS_ITS ---
Author Name [facility] Organization Unknown Care Team Organization Name Specialty Phone Email Start Date End [facility] 09/26/2024
--- OUTSIDE RECORDS SUMMARY | 2025-03-30 14:07 | XMS_ITS | Clinical Summary ---
Author Organization [facility] 299 [facility] [place] [facility] Address [address] [place] [address] Phone Care Team Providers Care Gamb Cutter Name Role Phone Sherice Steiner MD Primary Care Provider [phone] Allergies No known active allergies Medications methotrexate [...] Encounters Date Type Department Care Team Description 03/23/2025 Telephone Gastroenterology - [address] [address] Geovanna Kennedy MD 03/16/2025 Telephone Gastroenterology - [address] [address] Geovanna Kennedy MD Advice Only 02/07/2025 Telephone Gastroenterology - [address] [address] Karely Fox MA 02/01/2025 3:40 PM EDT Office Visit Gastroenterology - [address] [address] Geovanna Kennedy MD Ulcerative pancolitis without complication ([facility] V24, [facility] V28) (Primary Dx); Chronic constipation 01/31/2025 Telephone Gastroenterology - 299 [address] [facility] [address] [place] [address] Geovanna Kennedy MD from Last 3 Months Surgical History Surgery Date Site/Laterality Comments TOTAL KNEE ARTHROPLASTY PROCEDURE: [place] ARTHRP KNE CONDYLE&PLATU MEDIAL&LAT COMPARTMENTS OTHER SURGICAL HISTORY PROCEDURE: [place] SCREENING TSTS DIABETES MELLITUS RVWD RQSTD ORD [...] Date Comments Iron deficiency anemia Ulcerative colitis ([facility] V24, [facility] V28) Chronic constipation Diabetes ([facility] V24, [facility] V28) HTN (hypertension) Depression Psoriasis Osteoporosis RLS [...] Office Visit Gastroenterology - 299 [address] [facility] [address] [place] [phone] Geovanna Kennedy MD [address] [facility] [address] [place] [address] Health Maintenance Due Date Last Done Comments [...] 10/20/2024 Hypertension/CHF/CAD Annual BMP Blood Test 10/20/2024 Influenza Vaccine (#1) 2025 , 07/08/2023, 06/23/2022, Additional history exists Pneumococcal Vaccine: 50+ Years (3 of 3 - PCV20 or PCV21) 08/09/2025 08/09/2020, 09/11/2015 Pneumococcal Vaccine: Pediatrics (0 to 5 Years) and At-Risk Patients (6 to 49 Years) (3 of 3 - PCV20 or PCV21) 08/09/2025 08/09/2020, 09/11/2015 DTaP,Tdap,and Td Vaccines (2 - Td or Tdap) 09/06/2029 09/06/2019 Zoster Vaccines Completed 02/28/2022, 10/14/2021 RSV Immunization Adult Patients Completed 07/10/2023 HIB Vaccines Aged Out No longer eligi [...] 3:17 PM EDT Ulcerative pancolitis without complication ([facility] V24, [facility] V28) from Last 3 Months Results * Calprotectin, stool (02/02/2025 3:17 PM EDT) Calprotectin, Fecal 42.2 <50 mcg/g 02/06/2025 2:09 PM EDT [facility] Comment: <50 mcg/g Normal 50 - 120 mcg/g Borderline >120 mcg/g Abnormal Borderline results suggest repeat testing in 4 to 6 weeks. Test performed at [facility], [address] , [place], [place] [id number] Elaina Esparza MD, PhD - In Home Baby Sitter Stool Rectum structure / Unknown Non-blood Collection / Unknown 02/02/2025 3:17 PM EDT 02/02/2025 4:07 PM EDT us Geovanna Kennedy MD LAB BODY FLUIDS AND STOOLS ORD ERABLES Final Result [facility] [address] [place], [place] [phone] from Last 3 Months Insurance MEDICARE MEDICAID - [place] [facility] Care Teams Gamb Cutter Relationship Specialty Start Date End Date Sherice Steiner MD [address] [place] [phone] PCP - General Internal Medicine 02/11/18
--- NOTE | 2025-03-30 14:16 | AM.OFFVISNUR ---
Intake Visit Reasons: evenity Allergies No Known Allergies Allergy (Verified 03/15/25 09:32) Office Meds romosozumab-aqqg 210 mg/2.34 mL(105 mg/1.17 mL x2)subcutaneous syringe Performing Provider: Manoj Wolfe MD Performing Location: [facility] Rheumatology Administered by: Best Horne RN on 03/30/25 14:25 Dose Route Admin Location Dispensed Lot Number Expiration Date [employer]st 210 mg subcut 2.34 mL [id number] 07/21/27 89146-715-41 [employer] Total Dispensed Waste 2.34 mL 0 % Comments: Azul Rothman presents today for # 1 Evenity (romosozumab) 2 x 105 mg/1.17mL subcutaneous injection for the treatment of osteoporosis. The patient has not had any recent fever or illness. The injection site to be used is without erythema, edema, and is clean, dry and intact. The patient tolerated the procedure well. We discussed follow-up precautions including but not limited to injection site soreness, redness, itching or swelling. The patient can call the office for consideration of treatment recommendations e.g., medication to reduce pain (e.g., Tylenol) or itching (e.g., Benadryl) if needed. Skin and mucosal symptoms such as generalized hives, itching, or flushing; swelling of lips, face, throat, or eyes. Respiratory symptoms such as nasal congestion, change in voice, sensation of throat closing, stridor, shortness of breath, wheeze, or cough. Gastrointestinal symptoms such as nausea, vomiting, diarrhea, cramping abdominal pain. Cardiovascular symptoms such as collapse, dizziness, tachycardia, hypotension are considered medical emergencies and the patient verbalizes that urgent medical attention (call 911) should be sought. The patient was held for observation. No injection site reactions noted. The patient was discharged from the practice. Assessment & Plan Assessment & Plan Orders: Orders AMB Romosozumab Injection Patient Supplied Today M81.0 - Age-related osteoporosis without current pathological fracture Coding
== END 2025-03-30 14:12 | disposition home or self-care (01) ==
LOC: HO.RHES 13:59
PROVIDERS: PCP Internal Medicine; Visit Provider Internal Medicine Rheumatology
DX: M81.0 Age-related osteoporosis without current pathological fracture (principal)

== ENCOUNTER → 2025-03-30 13:58 | Outpatient (BNVA) | payer MEDICARE, MEDICAID, OTHER, SELFPAY | PROVIDERS: PCP Internal Medicine; Visit Provider Internal Medicine Rheumatology | DX: M81.0 Age-related osteoporosis without current pathological fracture (principal) | CPT/HCPCS: 96372; J3111 ==

== ENCOUNTER 2025-04-27 08:56 | Outpatient (AMB) | payer MEDICARE, MEDICAID, OTHER, SELFPAY ==
--- NOTE | 2025-04-27 09:17 | AM.OFFVISNUR ---
Intake Visit Reasons: Evenity 2 Allergies No Known Allergies Allergy (Verified 03/15/25 09:32) Office Meds romosozumab-aqqg 210 mg/2.34 mL(105 mg/1.17 mL x2)subcutaneous syringe Performing Provider: Manoj Wolfe MD Performing Location: [facility] Rheumatology Administered by: Best Horne RN on 04/27/25 09:17 Dose Route Admin Location Dispensed Lot Number Expiration Date NDC Community Support Associate 210 mg subcut 2.34 mL [id number] 07/21/27 56054-571-22 AMGEN Total Dispensed Waste 2.34 mL 0 % Comments: Azul Rothman presents today Evenity (romosozumab) 2 x 105 mg/1.17mL subcutaneous injection for the treatment of osteoporosis. The patient has not had any recent fever or illness. The injection site to be used is without erythema, edema, and is clean, dry and intact. The patient was held for observation. No injection site reactions noted. The patient was discharged from the practice. Assessment & Plan Assessment & Plan Orders: Orders AMB Romosozumab Injection Patient Supplied Today M81.0 - Age-related osteoporosis without current pathological fracture Coding
--- OUTSIDE RECORDS SUMMARY | 2025-04-27 09:17 | XMS_ITS | Encounter Summary ---
Author Organization [facility] Address [address] [place] [address] Care Team Providers Care Angiographer Name Role Phone Sherice Steiner MD Primary Care Provider [phone] Reason for Visit * Reason Onset Date Comments Provider Call Back 04/24/2025 Encounter Details Date Type Department Care Team ([facility] st Contact Info) Description 04/24/2025 Telephone Gastroenterology - [address] [place] [address] [address] Geovanna Kennedy MD [address] [address] Provider Call Back Social History Tobacco Use Types Packs/Day Years [...] as of this encounter Progress Notes * Geovanna Kennedy MD - 04/26/2025 5:16 PM EDT Spoke with patient's flag signaler Dr. Manoj Wolfe this afternoon. She is considering changing her biologic therapy for her inflammatory arthritis. I had discussed with the patient changing to Skyrizi if needed in the future as this may help her underlying ulcerative colitis and her inflammatory arthritis. The dose for ulcerative colitis would be a loading dose of 1200 mg for her 3 infusions and then 360 mg subcu every [address] Wolfe will try to get this approved through their office soshe can have her infusions in the same location she has been having them if she runs into any issues she will contact us to see if we can help. She does have a copy of Azul's last visit with me in January. Patient has a follow-up with me scheduled in 2 weeks time * Pavithra Cameron - 04/24/2025 12:10 PM EDT Patient calling because she had seen her flag signaler today and they usually order her infusions for her ulcerative colitis and spondyloarthritis every [address] Kennedy has recommended her try Suman and patient told Dr. Manoj Wolfe at [facility]. Dr. Wolfe is requesting Dr. Kennedy reach out to her to discuss dose/frequency. Patient next infusion is on 05/03, please contact Dr. Wolfe to discuss infusions at [phone] and ask for the [place] office. documented in this encounter Plan of Treatment Upcoming Encounters Date Type Department Care Team (Late st Contact Info) Description 05/16/2025 3:40 PM EDT Office Visit Gastroenterology - [address] [phone] Geovanna Kennedy MD [address] [place] [phone] documented as of this encounter Visit Diagnoses Not on filedocumented in this encounter Care Teams Angiographer Relationship Specialty Start Date End Date Sherice Steiner MD [address] [place] [phone] PCP - General Internal Medicine 02/11/18 documented as of this encounter
== END 2025-04-27 09:15 | disposition home or self-care (01) ==
LOC: HO.RHES 08:57
PROVIDERS: PCP Internal Medicine; Visit Provider Internal Medicine Rheumatology
DX: M81.0 Age-related osteoporosis without current pathological fracture (principal)

== ENCOUNTER → 2025-04-27 08:56 | Outpatient (BNVA) | payer MEDICARE, MEDICAID, OTHER, SELFPAY | PROVIDERS: PCP Internal Medicine; Visit Provider Internal Medicine Rheumatology | DX: M81.0 Age-related osteoporosis without current pathological fracture (principal) | CPT/HCPCS: 96372; J3111 ==

== ENCOUNTER 2025-05-25 09:08 | Outpatient (AMB) | payer MEDICARE, MEDICAID, OTHER, SELFPAY ==
--- OUTSIDE RECORDS SUMMARY | 2025-05-25 09:39 | XMS_ITS | Clinical Summary ---
Author Organization [facility] [address] [facility] Address [address] [place] [address] Phone Care Team Providers Care Lithographer Apprentice Name Role Phone Sherice Steiner MD Primary Care Provider [phone] Allergies No known active allergies Medications methotrexate [...] 1 tablet (500 mg total). 3 Active Active Problems Problem Noted Date Diagnosed Date Allergic rhinitis 05/15/2025 Alopecia 05/15/2025 Overview (05/15/2025): New Eng Derm Ankle fracture 05/15/2025 Asthma 05/15/2025 Overview (05/15/2025): follows with Dr Mata mild intermittent Cholelithiasis 05/15/2025 Overview (05/15/2025): Seen on ultrasound Hepatic dysfunction 05/15/2025 Overview (05/15/2025): 01/30 fatty liver again seen on ultraound fatty liver seen on US 04/28, nephromegaly also seen Hiatal hernia 05/15/2025 Overview (05/15/2025): Large on CXR at [facility] Gastroesophageal reflux disease 05/15/2025 Overview (05/15/2025): failed trial off ppi GI Dr Spring Fracture of metatarsal bone 05/15/2025 Overview (05/15/2025): 5th. After fall down two steps. [facility] Fracture of calcaneus 05/15/2025 Overview (05/15/2025): Slipped. Sen in Er and connected with [facility] Constipation 05/15/2025 Overview (05/15/2025): Saw Dr spring Chronic sinusitis 05/15/2025 Overview (05/15/2025): Sees Dr Mata. Has seen Dr Solorio Iron deficiency 05/15/2025 Overview (05/15/2025): did not tolareate oral so getting infusion set up by sleep med Insomnia 05/15/2025 Overview (05/15/2025): melatonin and tylenol pm did not hel Ambien and trazodone and hydroxyzine did not help Osteoarthritis 05/15/2025 Immunosuppression ([facility] V24) 05/15/2025 History of COVID-19 05/15/2025 High alkaline phosphatase 05/15/2025 Overview (05/15/2025): Normal GGTP. Normal AMA Normal isoenzymes Vitamin D deficiency 05/15/2025 Type 2 diabetes mellitus (CMS/HCC V24, [facility] V 28) 05/15/2025 Overview (05/15/2025): glucosuria and yeast infection on Jardiance 25mg. Trying 10mg ozempic caused too much GI symptoms. Tolerates Trulicity now has protienuria did not tolerate Metformin 500mg bid due to diarrhea Steatosis of liver 05/15/2025 Overview (05/15/2025): Seen on ultrasound Spondyloarthropathy 05/15/2025 Rotator cuff tear 05/15/2025 Restless legs syndrome 05/15/2025 Overview (05/15/2025): Iron infuaion helped decrease Post-operative pain 05/15/2025 Osteoporosis 05/15/2025 Overview (05/15/2025): rheum following. dexa now osteopenia now on evenity Rheum following Ocular migraine 05/15/2025 Overview (05/15/2025): dx by eye doctor Moderate persistent asthma 05/15/2025 Mitral valve stenosis 05/15/2025 Overview (05/15/2025): Mild. repeat echo 12/10 Left ventricular hypertrophy 05/15/2025 Overview (05/15/2025): new. mild. repeat echo 12/10 Premature atrial complex 02/14/2025 Fracture of bone of hip ([facility] V24, [facility] V2 8) 09/02/2023 Overview (05/15/2025): After trip over dog bowl. [facility] Carpal tunnel syndrome 08/31/2020 Overview (05/15/2025): neos had emg Hypertension 12/17/2019 Sleep apnea 05/03/2017 Overview (05/15/2025): AutoCPAP 8-20 cm H2O with compliance data followed Inflammatory polyarthropathy (CMS/HCC V24, [facility] V28) 09/01/2012 Overview (05/15/2025): Seeing Dr wayne Chronic ulcerative colitis (CMS/HCC V24, CMS/HCC V28) 09/30/2011 Overview (05/15/2025): Seen on colonscopy. Followed by Dr Spring Peptic ulcer 01/22/2009 Overview (05/15/2025): Positve ab for H. pylori and was treated Encounters Date Type Department Care Team Description 04/24/2025 Telephone Gastroenterology - [address] [place] [phone] Geovanna Spring MD 03/23/2025 Telephone Gastroenterology - [address] [phone] Geovanna Spring MD 03/16/2025 Telephone Gastroenterology - [address] [phone] Geovanna Spring MD from Last 3 Months Immunizations Name Administration Dates Next Due Influenza Quadravalent, MDCK , 0.5ml, with preservative (Flucelvax) 6mo and older 06/17/2024,07/08/2023,06/23/2022,06/18,06/08/2019,07/20/2018 Influenza Whole 08/21/2010 Influenza trivalent, 0.5mL ( Fluad) 65yo and older 07/10/2020 Influenza trivalent, with pr eservative (Fluzone; Afluria) 6mo and older 07/23/2017,07/22/2016,09/13/2015,06/21 Pneumococcal conjugate 13 va lent (Prevnar 13, PCV13) 2mo and older 08/09/2020 Pneumococcal polysaccharide 23 valent (Pneumovax 23) 2yo and older 09/11/2015 RSV, bivalent, protein subun it RSVpreF, 0.5mL, Preservative Free (Arexvy) 60yo and older 07/10/2023 Tdap Tetanus diptheria acell ular pertussis (Boostrix; Adacel) 7yo and older 09/06/2019 Zoster recombinant (Shingrix ) 19yo and older 02/28/2022,10/14/2021 Surgical History Surgery Date Site/Laterality Comments TOTAL KNEE ARTHROPLASTY PROCEDURE: UT ARTHRP KNE CONDYLE&PLATU MEDIAL&LAT COMPARTMENTS OTHER SURGICAL HISTORY PROCEDURE: UT SCREENING TSTS DIABETES MELLITUS RVWD RQSTD ORD [...] Comments Iron deficiency anemia Ulcerative colitis ([facility] V24, [facility] V28) Chronic constipation Diabetes ([facility] V24, [facility] V28) HTN (hypertension) Depression Psoriasis Osteoporosis [...] Care Team (Late st Contact Info) Description 08/25/2025 8:00 AM EST Office Visit Gastroenterology - [address] [facility] [address] [place] [phone] Geovanna Spring MD [address] [place] [phone] Health Maintenance Due Date Last Done Comments Breast Cancer Screening 1962 Diabetes: Annual GFR (Glomerular Filtration Rate) 1962 Diabetes: Annual Foot Exam 1972 Diabetes: Annual Retina Eye Exam 1972 Cervical Cancer Screening: Pap Smear 1983 Cholesterol Screening (Lipid Panel) 10/20/2023 HIV Screening 10/20/2023 Hepatitis C Screening 10/20/2023 Medicare Annual Wellness Visit 10/20/2023 Osteoporosis Screening (Bone Density Screening) 10/20/2023 Social Influencers of Health Screening 10/20/2023 COVID-19 Vaccine () 05/22/2024 07/10/2023, 10/03/2022, 02/28/2022, Additional history exists Depression Screening 09/21/2024 Diabetes: Annual Urine Albumin-Creatinine Ratio (uACR) 10/20/2024 Diabetes: Blood Sugar Control Test (HGBA1C) 10/20/2024 Hypertension/CHF/CAD Annual BMP Blood Test 10/20/2024 Influenza Vaccine (#1) 2025 , 07/08/2023, 06/23/2022, Additional history exists Pneumococcal Vaccine: 50+ Years (3 of 3 - PCV20 or PCV21) 08/09/2025 08/09/2020, 09/11/2015 DTaP,Tdap,and Td Vaccines (2 - Td or Tdap) 09/06/2029 09/06/2019 Colorectal Cancer Screening: Colonoscopy 04/18/2035 04/18/2025 Zoster Vaccines Completed 02/28/2022, 10/14/2021 RSV Immunization Adult Patients Completed 07/10/2023 HIB Vaccines Aged Out No longer eligi ble based on patient's age to complete this topic HPV Vaccines Aged Out No longer eligi ble based on patient's age to complete this topic Hepatitis A Vaccines Aged Out No long er eligible based on patient's age to complete this topic Hepatitis B Vaccines Aged Out No long er eligible based on patient's age to complete [...] Procedure Name Priority Date/Time Associated Diagnosis Comments COLONOSCOPY Routine 04/18/2025 2:00 PM EDT from Last 3 Months Results * COLONOSCOPY (04/18/2025 2:00 PM EDT) Anatomical Region Laterality Modality Endoscopy us Historical Provider MD GI~PROCEDURE ORDERABLES F inal Result from Last 3 Months Insurance MEDICARE MED[place] - [place] [facility] Care Teams Lithographer Apprentice Relationship Specialty Start Date End Date Sherice Steiner MD [address] [place] [phone] PCP - General Internal Medicine 02/11/18
--- NOTE | 2025-05-25 09:52 | AM.OFFVISNUR ---
Intake Visit Reasons: evenity 3 Allergies No Known Allergies Allergy (Verified 03/15/25 09:32) Office Meds romosozumab-aqqg 210 mg/2.34 mL(105 mg/1.17 mL x2)subcutaneous syringe Performing Provider: Manoj Wolfe MD Performing Location: [facility] Rheumatology Administered by: Best Horne RN on 05/25/25 09:52 Dose Route Admin Location Dispensed Lot Number Expiration Date NDC Nitrocellulose Maker 105 mg subcut left posterior arm 1.17 mL [id number] 08/20/27 87543-378-82 AMGEN 105 mg subcut right posterior arm 1.17 mL [id number] 08/20/27 78241-628-12 AMGEN Total Dispensed Waste 2.34 mL 0 % Comments: Patient presents for Evenity injection. She tolerated the procedure well. No adverse reaction noted. The patient was discharged from the practice in her usual state of health Assessment & Plan Assessment & Plan Orders: Orders AMB Romosozumab Injection Patient Supplied Today M81.0 - Age-related osteoporosis without current pathological fracture Coding
== END 2025-05-25 09:37 | disposition home or self-care (01) ==
LOC: HO.RHES 09:08
PROVIDERS: PCP Internal Medicine; Visit Provider Internal Medicine Rheumatology
DX: M81.0 Age-related osteoporosis without current pathological fracture (principal)

== ENCOUNTER → 2025-05-25 09:08 | Outpatient (BNVA) | payer MEDICARE, MEDICAID, OTHER, SELFPAY | PROVIDERS: PCP Internal Medicine; Visit Provider Internal Medicine Rheumatology | DX: M81.0 Age-related osteoporosis without current pathological fracture (principal) | CPT/HCPCS: 96372; J3111 ==

== ENCOUNTER 2025-06-20 09:01 | Outpatient (REF) | payer MEDICARE, MEDICAID, OTHER, SELFPAY ==
[2025-06-20 13:45] LABS: MANUAL DIFF FLAG NO
[2025-06-20 13:46] LABS: Hematocrit 46.6 % (37.0-47.0); Hemoglobin 15.7 g/dl (12.0-16.0); Imm Gran Abs Auto 0.05 X10*3/uL (0.00-0.03); Imm Gran Pct Auto 0.5 % (0.0-0.4); Lymphocytes Absolute Auto 2.5 X10*3/uL (1.2-4.9); Mean Corpuscular HGB Conc 33.7 g/dl (31.0-35.0); Mean Corpuscular Hemoglobin 29.7 pg (27.0-33.0); Mean Corpuscular Volume 88.3 fL (80.0-98.0); NRBC Abs Auto 0.000 X10*3/uL (0.0-0.012); NRBC Pct Auto 0.0 /100WBC (0.0-0.2); Platelet Count 326 X10*3/uL (160-400); Red Blood Count 5.28 X10*6/uL (4.20-5.50); White Blood Count 9.5 X10*3/uL (4.8-10.8)
[2025-06-20 16:30] LABS: Alanine Aminotransferase 43 U/L (0-31); Albumin Level 4.9 g/dL (3.5-5.0); Alkaline Phosphatase 160 U/L (39-117); Anion Gap 13 (12-20); Aspartate Amino Transferase 40 U/L (5-31); Blood Urea Nitrogen 12 mg/dL (9-16); Calcium 10.0 mg/dL (8.4-10.2); Carbon Dioxide 26 mmol/L (22-29); Chloride 105 mmol/L (96-108); Estimated Glomerular Filt Rate > 60; Iron 123 mcg/dL (30-160); Percent Iron Saturation 37 % (15-50); Potassium 4.1 mmol/L (3.3-5.1); Sodium 140 mmol/L (135-145); Total Iron Binding Capacity 331 mcg/dL (228-428); Total Protein 7.7 g/dL (6.5-8.0); Unsaturated Iron Binding 208 ug/dL
[2025-06-20 16:39] LABS: Ferritin 192 ng/mL (10-250)
[2025-06-21 06:14] LABS: Transferrin 294 mg/dL (188-341)
== END 2025-06-20 09:02 | disposition home or self-care (01) ==
LOC: HO.HKASLDS 09:01
PROVIDERS: PCP Internal Medicine; Visit Provider Internal Medicine Rheumatology
DX: M81.0 Age-related osteoporosis without current pathological fracture (principal); D50.9 Iron deficiency anemia, unspecified; M47.819 Spondylosis without myelopathy or radiculopathy, site unspecified; R74.01 Elevation of levels of liver transaminase levels; Z79.899 Other long term (current) drug therapy; Z79.620 Long term (current) use of immunosuppressive biologic
CPT/HCPCS: 20610; 36415; 80053; 82306; 82728; 83540; 84466; 85025; 85652; 86140; 99212; J2003; J3301

== ENCOUNTER 2025-06-20 09:01 | Outpatient (AMB) | payer MEDICARE, MEDICAID, OTHER, SELFPAY ==
--- OUTSIDE RECORDS SUMMARY | 2025-06-20 09:39 | XMS_ITS | Clinical Summary ---
Author Organization [facility] 299 [facility] Address [address] [place] [address] Phone Care Team Providers Care Property Man Name Role Phone Sherice Steiner MD Primary Care Provider [phone] Allergies No known active allergies Medications methotrexate [...] 05/15/2025 Overview (05/15/2025): Large on CXR at [facility] Gastroesophageal reflux disease 05/15/2025 Overview (05/15/2025): [...] hydroxyzine did not help Osteoarthritis 05/15/2025 Immunosuppression ([facility] V24) 05/15/2025 History of COVID-19 05/15/2025 High alkaline phosphatase 05/15/2025 Overview (05/15/2025): Normal GGTP. Normal AMA Normal isoenzymes Vitamin D deficiency 05/15/2025 Type 2 diabetes mellitus (CMS/HCC V24, [facility] V 28) 05/15/2025 Overview (05/15/2025): glucosuria and [...] complex 02/14/2025 Fracture of bone of hip ([facility] V24, [facility] V2 8) 09/02/2023 Overview (05/15/2025): After trip over dog bowl. [facility] Carpal tunnel syndrome 08/31/2020 Overview (05/15/2025): neos had emg Hypertension 12/17/2019 Sleep apnea 05/03/2017 Overview (05/15/2025): AutoCPAP 8-20 cm H2O with compliance data followed Inflammatory polyarthropathy (CMS/HCC V24, [facility] V28) 09/01/2012 Overview (05/15/2025): Seeing Dr wayne Chronic ulcerative colitis (CMS/HCC V24, CMS/HCC V28) 09/30/2011 Overview (05/15/2025): Seen on colonscopy. Followed by Dr Spring Peptic ulcer 01/22/2009 Overview (05/15/2025): Positve ab for H. pylori and was treated Encounters Date Type Department Care Team Description 04/24/2025 Telephone Gastroenterology - [address] [place] [phone] Geovanna Spring MD 03/23/2025 Telephone Gastroenterology - [address] [facility] [address] [place] [phone] Geovanna Spring MD from Last 3 Months Immunizations Immunization Administration Dates Next Due Influenza Quadravalent, MDCK [...] Date Comments Iron deficiency anemia Ulcerative colitis ([facility] V24, [facility] V28) Chronic constipation Diabetes ([facility] V24, [facility] V28) HTN (hypertension) Depression Psoriasis Osteoporosis RLS [...] Office Visit Gastroenterology - [address] [facility] [address] [place] [phone] Geovanna Spring MD [address] [place] [address] [place] [phone] Health Maintenance Due Date Last Done Comments [...] 10/20/2023 Social Influencers of Health Screening 10/20/2023 Depression Screening 09/21/2024 Diabetes: Annual Urine Albumin-Creatinine Ratio (uACR) 10/20/2024 Diabetes: Blood Sugar Control Test (HGBA1C) 10/20/2024 Hypertension/CHF/CAD Annual BMP Blood Test 10/20/2024 COVID-19 Vaccine ( season) 2025 07/10/2023, 10/03/2022, 02/28/2022, Additional history exists Influenza Vaccine (#1) 2025 , 07/08/2023, 06/23/2022, [...] Region Laterality Modality Endoscopy us Historical Provider GI~PROCEDURE ORDERABLES F inal Result from Last 3 Months Insurance MEDICARE MEDICAID - [place] [facility] Care Teams Property Man Relationship Specialty Start Date End Date Sherice Steiner MD [address] [place] [phone] PCP - General Internal Medicine 02/11/18
--- NOTE | 2025-06-20 09:42 | MHC.OFFVIS ---
Vital Signs 06/20/25 09:44 Height 5 ft 9 in BP 140/90 H Blood Pressure Location Lt brachial Position Sitting Pulse 99 Pulse Source Pulse Oximeter Pulse Oximetry (%) 59 L Oxygen Delivery Method Room Air Intake Visit Reasons: 3 Months Intake Note: Patient presents for follow up for spondyloarthropathy. WouLd like a cortizone inj on left shoulder. Accompanied by: Self / Same As Patient Allergies No Known Allergies Allergy (Verified 06/20/25 09:46) HPI HPI 3 Months: Details: She is experiencing pain in her left shoulder with activity. Swelling in her joints has improved. She did not have benefit in shoulder pain with recent prednisone course. Right knee pain is uncontrolled. She had an appointment with pain management at [facility] who performed geniculate nerve block, which did not last long. She will be following up with pain management in a few weeks. They may decide to do an alternative regimen for the nerve block for long-term benefit. [facility] Medical History Right rotator cuff tear Fracture of left hip requiring operative repair Left wrist fracture Right scapula fracture Vitamin D deficiency Ulcerative colitis Schamberg disease MRSA (methicillin resistant Staphylococcus aureus) Hypertension Hidradenitis suppurativa Hepatic steatosis GERD (gastroesophageal reflux disease) Diabetes mellitus Asthma, mild intermittent Anxiety Spondylosis Spondyloarthropathy Osteoporosis Osteoarthritis of both knees Osteoarthritis of ankle, left Low back pain Degeneration, intervertebral disc, lumbosacral Carpal tunnel syndrome Bursitis Arthralgia Surgical History S/P Achilles tendon repair History of open reduction and internal fixation (ORIF) procedure S/P left inguinal herniorrhaphy S/P cholecystectomy S/P tonsillectomy Family History Father Heart disease Diabetes Physical Exam Vital Signs: Last Vital Signs Pulse 99 06/20/25 09:44 BP 140/90 H 06/20/25 09:44 Pulse Ox 59 L 06/20/25 09:44 Oxygen Delivery Method Room Air 06/20/25 09:44 Const Other: General: Comfortable CVS: RRR Respiratory: clear to auscultation bilaterally. Good respiratory effort Skin: No lesions seen MSK: Tender to palpate left wrist. She has tenderness of left PIP and DIPJ. She has full range of motion of upper extremity and lower extremities. Tender left biceps muscle and triceps muscle. No tenderness of biceps tendon. Negative younger seen test. Valgus knee deformity present. Tender to palpate left ankle along peroneus brevis/longus tendon. She has left Achilles tendon both present. No MTP tenderness. Office Procedures AMB Joint Injection/Aspiration Joint Injection/Aspiration Details: Left shoulder joint Prep: site was prepped using aseptic technique Injected: 40 mg of, Kenalog, with 1 mL of and 1% plain lidocaine Procedure: Informed verbal consent was obtained. The patient tolerated the procedure well. Postprocedure protocol was discussed with patient. Coding 54747 - Large joint Procedure code (CPT) selection complete Office Meds lidocaine (PF) 10 mg/mL (1 %) injection solution Performing Provider: Manoj Wolfe MD Performing Location: [facility] Administered by: Justa Bolivar RN on 06/20/25 10:57 Dose Route Admin Location Dispensed Lot Number Expiration Date [facility] Health Information Assistant 1 mL Infiltration 2 mL [id number] 02/18/27 55027-892-08 FRESENIUS KABI Total Dispensed Waste 2 mL 50 % Kenalog 40 mg/mL suspension for injection Performing Provider: Manoj Wolfe MD Performing Location: [facility] Administered by: Justa Bolivar RN on 06/20/25 10:57 Dose Route Admin Location Dispensed Lot Number Expiration Date [facility] Health Information Assistant 40 mg intrabursal 1 mL [id number] 03/20/27 [address]-5 [employer] Total Dispensed Waste 1 mL 0 % Assessment & Plan Assessment & Plan (1) Spondyloarthropathy: Comment: Spondyloarthritis is uncontrolled on Simponi Aria. She failed treatment with Simponi Aria. Skyrizi IV PA approved. PA for Skyrizi subcutaneous injection is pending. She continues to have left shoulder pain due to uncontrolled inflammatory arthritis. She has had benefit with shoulder intra-articular cortisone injections. Rheumatology history: Previously inflammatory arthritis and ulcerative colitis was in remission on methotrexate and Simponi Aria. Treatment was held when she developed left calcaneal fracture 01/2025 without healing complicated with postoperative infection to Achilles tendon 01/2024 s/p surgery. She is currently holding plan for revision because she does not want to be immobile for the duration of 8 weeks that she needs to wear a boot. Simponi Aria 07/2021- 12/2023 then resumed 12/16/2024. Sees GI Dr. Kennedy. Secondary treatment failure for inflammatory arthritis (L wrist) with Humira, which was prescribed by GI for ulcerative colitis. MTX was added due to inflammatory arthritis left ankle 07/2012-. Previously on methotrexate 20 mg once weekly, which was reduced to 15 mg once weekly due to transaminitis. History of hydradenitis suppurativa previously controlled on humira and remains in control on Simponi. She sees pain management for left ankle tendinopathy pain controlled with guided cortisone injection. She also receives geniculate nerve block for pain control for osteoarthritis bilateral knees. Simponi Aria resumed 12/16/2024. Code(s): M47.819 - Spondylosis without myelopathy or radiculopathy, site unspecified Category: Medical Plan: Continue Simponi Aria 2 milligram/kilogram every 8 weeks IV. Skyrizi will replace Simponi aria. Skyrizi IV induction dose 1200 mg at weeks 0, 4 and 8 then followed by maintenance subcutaneous injection 180 mg at week 12 (after starting induction) and every 8 weeks thereafter. First dose of IV induction Skyrizi should be scheduled when next Simponi Aria is due or after. She will need nurse visit for 1st maintenance dose of Skyrizi nurse visit scheduled. Hold methotrexate 15 mg once weekly and folic acid until liver function normalizes Patient received left shoulder cortisone injection this visit She is due for labs for drug monitoring on high-risk medication Return to clinic in 3 months (2) Transaminitis: Code(s): R74.01 - Elevation of levels of liver transaminase levels Category: Medical Plan: Repeat LFTs ordered Continue to hold methotrexate (3) Osteoporosis: Comment: Prior history of hyperparathyroidism and with multiple fragility fractures: She fell down 1 step and fractured her left ulnar styloid, left radial head, left base of 5th metatarsal and elbow. She had right hip fracture and 2 ribs were fractured 09/02/2024, and left calcaneus was fractured January 2024. High risk for future fractures. Forteo and Tymlos contraindicated due to hyperparathyroidism. She had Romosuzumab 02/2024, 05/25/2024, 07/15/2024, and 08/12/2024. Evenity was approved after appealx2. We reviewed recent bone density 02/01/2025. She has improvement of bone density and lumbar spine. There is worsening bone density in left femoral neck and total hip. She has not completed treatment with Evenity. I expect more gains with full treatment, which will then need to be followed by treatment with Prolia to consolidate gains and for further benefit. Code(s): M81.0 - Age-related osteoporosis without current pathological fracture Category: Medical Qualifiers: Osteoporosis type: unspecified Presence of current pathological fracture: unspecified Qualified Code(s): M81.0 - Age-related osteoporosis without current pathological fracture Plan: Evenity has been approved. #5 Evenity we will need to be scheduled after medicine is delivered to her facility. Continue vitamin-D 1000 IU daily per endocrine recommendations [facility]. She has had hypercalcemia in the past. She is not taking calcium supplement. Return to clinic in 3 months Orders: Orders C Reactive Protein Today Z79.899 - Other intermediate (current) drug therapy AMB Joint Injection/Aspiration Today M25.512 - Pain in left shoulder Complete Blood Count Auto Diff Today Z79.899 - Other termite control representative (current) drug therapy Alanine Aminotransferase Today Z79.899 - Other intermediate (current) drug therapy Aspartate Amino Transferase Today Z79.899 - Other intermediate (current) drug therapy Creatinine Today Z79.899 - Other termite control representative (current) drug therapy Erythrocyte Sedimentation Rate Today Z79.899 - Other termite control representative (current) drug therapy Ferritin Today D50.9 - Iron deficiency anemia, unspecified Transferrin Today D50.9 - Iron deficiency anemia, unspecified IRON PROFILE Today D50.9 - Iron deficiency anemia, unspecified Coding Level of Care Code Est Pt Level 4 (81824) Complex EM visit Add On G2211 Diagnoses Spondyloarthropathy M47.819 Transaminitis R74.01 Osteoporosis, unspecified osteoporosis type, unspecified pathological fracture presence M81.0 Osteoporosis type: unspecified Presence of current pathological fracture: unspecified CPT Codes Coding - 53505 Large joint: 32982 - Large joint ([id number])
[2025-06-20 09:44] VITALS: BP 140/90; PULSE 99; O2SAT 59
== END 2025-06-20 10:26 | disposition home or self-care (01) ==
LOC: HO.RHES 09:01
PROVIDERS: PCP Internal Medicine; Visit Provider Internal Medicine Rheumatology
DX: M47.819 Spondylosis without myelopathy or radiculopathy, site unspecified (principal); R74.01 Elevation of levels of liver transaminase levels; M81.0 Age-related osteoporosis without current pathological fracture; M25.512 Pain in left shoulder
CPT/HCPCS: 20610; 99214

== ENCOUNTER 2025-07-04 08:59 | Outpatient (AMB) | payer MEDICARE, MEDICAID, OTHER, SELFPAY ==
--- NOTE | 2025-07-04 09:21 | AM.OFFVISNUR ---
Intake Visit Reasons: evenity #4 Allergies No Known Allergies Allergy (Verified 06/20/25 09:46) Office Meds romosozumab-aqqg 210 mg/2.34 mL(105 mg/1.17 mL x2)subcutaneous syringe Performing Provider: Manoj Wolfe MD [place] [facility] [facility] Administered by: Justa Bolivar RN on 07/04/25 09:21 Dose Route Admin Location Dispensed Lot Number Expiration Date [facility] Foster Care Worker 105 mg subcut right posterior arm 1.17 mL [id number] 06/20/27 41908-936-97 AMGEN 105 mg subcut left posterior arm 1.17 mL [id number] 06/20/27 08866-351-26 AMGEN Total Dispensed Waste 2.34 mL 0 % Comments: Azul Rothman presents today for # 4 Evenity (romosozumab) 2 x 105 mg/1.17mL subcutaneous injection for the treatment of osteoporosis. The patient has not had any recent fever or illness. The injection site to be used is without erythema, edema, and is clean, dry and intact. The patient tolerated the procedure well. The patient was held for observation. No injection site reactions noted. The patient was discharged from the practice. Assessment & Plan Assessment & Plan Orders: Orders AMB Romosozumab Injection Patient Supplied Today M81.0 - Age-related osteoporosis without current pathological fracture Coding
--- OUTSIDE RECORDS SUMMARY | 2025-07-04 09:35 | XMS_ITS | Clinical Summary ---
Author Organization [facility] [address] [facility] Address [address] [place] [address] Phone Care Team Providers Care Patient Transportation Driver Name Role Phone Sherice Steiner MD Primary Care Provider [phone] Allergies No known active allergies Medications methotrexate [...] 05/15/2025 Overview (05/15/2025): Large on CXR at [facility] Gastroesophageal reflux disease 05/15/2025 Overview (05/15/2025): failed [...] hydroxyzine did not help Osteoarthritis 05/15/2025 Immunosuppression ([facility] V24) 05/15/2025 History of COVID-19 05/15/2025 High alkaline phosphatase 05/15/2025 Overview (05/15/2025): Normal GGTP. Normal AMA Normal isoenzymes Vitamin D deficiency 05/15/2025 Type 2 diabetes mellitus (CMS/HCC V24, [facility] V 28) 05/15/2025 Overview (05/15/2025): glucosuria [...] complex 02/14/2025 Fracture of bone of hip ([facility] V24, [facility] V2 8) 09/02/2023 Overview (05/15/2025): After trip over dog bowl. [facility] Carpal tunnel syndrome 08/31/2020 Overview (05/15/2025): neos had emg Hypertension 12/17/2019 Sleep apnea 05/03/2017 Overview (05/15/2025): AutoCPAP 8-20 cm H2O with compliance data followed Inflammatory polyarthropathy (CMS/HCC V24, [facility]/H CC V28) 09/01/2012 Overview (05/15/2025): Seeing Dr wayne Chronic ulcerative colitis (CMS/HCC V24, CMS/HCC V28) 09/30/2011 Overview (05/15/2025): Seen on colonscopy. Followed by Dr Spring Peptic ulcer 01/22/2009 Overview (05/15/2025): Positve ab for H. pylori and was treated Encounters Date Type Department Care Team Description 04/24/2025 Telephone Gastroenterology - [address] [place] [address] Geovanna Spring MD from Last [...] subun it RSVpreF, 0.5mL, Preservative Free (Arexvy) 50yo and older 07/10/2023 Tdap Tetanus diptheria acell ular pertussis (Boostrix; Adacel) 7yo and older 09/06/2019 Zoster recombinant (Shingrix ) 19yo and older 02/28/2022,10/14/2021 Surgical History Surgery Date Site/Laterality Comments TOTAL KNEE ARTHROPLASTY PROCEDURE: [facility] ARTHRP KNE CONDYLE&PLATU MEDIAL&LAT COMPARTMENTS OTHER SURGICAL HISTORY PROCEDURE: [facility] SCREENING TSTS DIABETES MELLITUS RVWD RQSTD ORD [...] Iron deficiency anemia Ulcerative colitis ([facility]/HCC V24, [facility] V28) Chronic constipation Diabetes (CMS/HCC V24, CMS/[facility] V28) HTN (hypertension) Depression Psoriasis [...] Office Visit Gastroenterology - [address] [facility] [address] [place] [phone] Geovanna Spring MD [address] [facility] [address] [place] [address] Health Maintenance Due Date Last Done Comments [...] 3 Months Insurance MEDICARE MEDICA[place] - [place] [facility] Care Teams Patient Transportation Driver Relationship Specialty Start Date End Date Sherice Steiner MD [address] [place] [phone] PCP - General Internal Medicine 02/11/18
== END 2025-07-04 09:20 | disposition home or self-care (01) ==
LOC: HO.RHES 08:59
PROVIDERS: PCP Internal Medicine; Visit Provider Internal Medicine Rheumatology
DX: M81.0 Age-related osteoporosis without current pathological fracture (principal)

== ENCOUNTER → 2025-07-04 08:59 | Outpatient (BNVA) | payer MEDICARE, MEDICAID, OTHER, SELFPAY | PROVIDERS: PCP Internal Medicine; Visit Provider Internal Medicine Rheumatology | DX: M81.0 Age-related osteoporosis without current pathological fracture (principal); Z79.620 Long term (current) use of immunosuppressive biologic | CPT/HCPCS: 96372; J3111 ==

== ENCOUNTER 2025-07-28 09:00 | Outpatient (RCR) | payer MEDICARE, OTHER, MEDICAID, SELFPAY ==
[2024-10-12 11:35] VITALS: BP 107/79; PULSE 90; RESP 16; TEMP 36.8; O2SAT 99; BMI 29.6
[2024-12-16 07:38] VITALS: BMI 30.3
[2024-12-16 07:48] VITALS: BP 126/86; PULSE 81; RESP 18; TEMP 36.6
[2025-02-10 13:34] VITALS: BMI 29.7
[2025-02-10 13:50] VITALS: BP 135/88; PULSE 84; RESP 16; TEMP 36.1; O2SAT 95
[2025-04-07 09:06] VITALS: BMI 29.7
[2025-04-07 09:07] VITALS: BP 133/76; PULSE 100; RESP 16; TEMP 36.7; O2SAT 97
[2025-06-02 08:59] VITALS: BMI 29.6
[2025-06-02 09:10] VITALS: BP 141/104; PULSE 88; RESP 16; TEMP 36.7; O2SAT 96
[2025-07-28 09:05] VITALS: BMI 29.7
[2025-07-28 09:06] VITALS: BP 126/81; PULSE 84; RESP 16; TEMP 36.8; O2SAT 97
== END 2025-08-29 11:17 | disposition home or self-care (01) ==
LOC: HO.INF 09:00
PROVIDERS: Visit Provider Internal Medicine Rheumatology
DX: M47.819 Spondylosis without myelopathy or radiculopathy, site unspecified (principal); K51.90 Ulcerative colitis, unspecified, without complications; L73.2 Hidradenitis suppurativa
CPT/HCPCS: 96365; J1602

== ENCOUNTER 2025-08-03 09:02 | Outpatient (AMB) | payer MEDICARE, MEDICAID, OTHER, SELFPAY ==
--- NOTE | 2025-08-03 09:23 | AM.OFFVISNUR ---
Intake Visit Reasons: Evenity #5 Allergies No Known Allergies Allergy (Verified 06/20/25 09:46) Office Meds romosozumab-aqqg 210 mg/2.34 mL(105 mg/1.17 mL x2)subcutaneous syringe Performing Provider: Manoj Wolfe MD Performing Location: [facility] [place] [facility] Administered by: Justa Bolivar RN on 08/03/25 09:23 Dose Route Admin Location Dispensed Lot Number Expiration Date [employer] 1.17 mg subcut right posterior arm 1.17 mL [id number] 08/20/27 02960-637-29 AMGEN 1.17 mg subcut left posterior arm 1.17 mL [id number] 08/20/27 33613-348-63 AMGEN Total Dispensed Waste 2.34 mL 98.88 % Comments: Azul received Evenity #5 today. Both injection sites were clear, dry, and intact. One injection was administered to right posterior arm. One injection was administered to left posterior arm. No side effects or adverse reactions. She was advised to notify us if she is having any side effects or adverse reactions. She departed to home. Assessment & Plan Assessment & Plan Orders: Orders AMB Romosozumab Injection Patient Supplied Today M81.0 - Age-related osteoporosis without current pathological fracture Coding
--- OUTSIDE RECORDS SUMMARY | 2025-08-03 09:49 | XMS_ITS | Clinical Summary ---
Author Organization [facility] 299 [facility] Address [address] [place] [address] Phone Care Team Providers Care System Engineer Name Role Phone Sherice Steiner MD Primary Care Provider [phone] Allergies No known active allergies Medications methotrexate 2.5 mg tablet Take 2.5 mg by mouth. Active linaCLOtide (Linzess) 290 mcg capsuleIndicatio ns:Other constipation,Ulc erative pancolitis without complication (CMS/HCC V24, CMS/HCC V28) Take 1 capsule (290 mcg total) by mouth 1 (one) time each day. 30 each 11 10/20/19 25 026 Active spironolactone (ALDACTONE) 25 mg tablet Take 1 tablet (25 mg total) by mouth 1 (one) time each day. Active losartan (COZAAR) 50 mg tablet Take 1 tablet (50 mg total) by mouth 1 (one) time each day. Active LORazepam (ATIVAN) 0.5 mg tablet Take 1 tablet (0.5 mg total) by mouth. 08/29/20 24 Active golimumab 50 mg/0.5 mL syringe Inject 50 mg under the skin. Active folic acid (FOLVITE) 1 mg tablet Take 2 tablets (2,000 mcg total) by mouth 1 (one) time each day. Active ferrous gluconate (FERGON) 240 mg (27 mg iron) tablet Take 1 tablet (27 mg total) by mouth 1 (one) time each day. 10/28/19 25 Active ergocalciferol (VITAMIN D-2) 1,250 mcg (50,000 unit) capsule 1 CAPSULE BY MOUTH EVERY THURSDAY AND THURSDAY Active Jardiance 10 mg tablet Take 1 tablet (10 mg total) by mouth. 12/23/19 24 Active DULoxetine (CYMBALTA) [address] capsule Take 1 capsule (30 mg total) by mouth. 09/25/19 24 Active DULoxetine (CYMBALTA) [address] capsule Take 1 capsule (60 mg total) by mouth. 09/25/19 24 Active Trulicity 3 mg/0.5 mL pen injector injection INJECT CONTENTS OF 1 PRE-FILLED SYRINGE WEEKLY, ROTATING INJECTION SITES 09/26/19 25 Active cyclobenzaprine (FLEXERIL) 5 mg tablet TAKE 1 TABLET BY MOUTH EVERY DAY AT BEDTIME NEEDED FOR MUSCLE SPASM 01/17/20 25 Active amLODIPine (NORVASC) 5 mg tablet Active acetaminophen (TYLENOL) 500 mg tablet 1 tablet (500 mg total). 06/17/20 23 Active pantoprazole (PROTONIX) 40 mg EC tabletIndication s:Gastroesophage al reflux disease with esophagitis, unspecified whether hemorrhage TAKE 1 TABLET BY MOUTH TWICE A DAY 180 tablet 1 07/17/20 25 Active pantoprazole (PROTONIX) 40 mg EC tablet Take 1 tablet (40 mg total) by mouth 2 (two) times a day. 025 Discontinued Active Problems Problem Noted Date Diagnosed Date [...] 05/15/2025 Overview (05/15/2025): Large on CXR at [facility] Gastroesophageal reflux disease 05/15/2025 Overview (05/15/2025): [...] hydroxyzine did not help Osteoarthritis 05/15/2025 Immunosuppression (CMS/[facility] V24) 05/15/2025 History of COVID-19 05/15/2025 High alkaline phosphatase 05/15/2025 Overview (05/15/2025): Normal GGTP. Normal AMA Normal isoenzymes Vitamin D deficiency 05/15/2025 Type 2 diabetes mellitus (CMS/HCC V24, CMS/HCC V 28) 05/15/2025 Overview (05/15/2025): glucosuria and [...] complex 02/14/2025 Fracture of bone of hip (CMS/HCC V24, CMS/HCC V2 8) 09/02/2023 Overview (05/15/2025): After trip over dog bowl. [facility] Car[facility] syndrome 08/31/2020 Overview (05/15/2025): neos had emg Hypertension 12/17/2019 Sleep apnea 05/03/2017 Overview (05/15/2025): AutoCPAP 8-20 cm H2O with compliance data followed Inflammatory polyarthropathy (CMS/HCC V24, CMS/H CC V28) 09/01/2012 Overview (05/15/2025): Seeing Dr wayne Chronic ulcerative colitis (CMS/HCC V24, CMS/HCC V28) 09/30/2011 Overview (05/15/2025): Seen on colonscopy. Followed by Dr Spring Peptic ulcer 01/22/2009 Overview (05/15/2025): Positve ab for H. pylori and was treated Immunizations Immunization Administration Dates Next Due Influenza [...] Date Site/Laterality Comments TOTAL KNEE ARTHROPLASTY PROCEDURE: [place] ARTHRP KNE CONDYLE&PLATU MEDIAL&LAT COMPARTMENTS OTHER SURGICAL HISTORY PROCEDURE: [place] SCREENING TSTS DIABETES MELLITUS RVWD RQSTD ORD [...] (CMS/HCC V24, CMS/HCC V28) Chronic constipation Diabetes (CMS/HCC V24, CMS/HCC V28) HTN (hypertension) Depression Psoriasis Osteoporosis RLS [...] Office Visit Gastroenterology - [address] [facility] [address] [place] [phone] Geovanna Spring MD [address] [address] Health Maintenance Due Date Last Done Comments [...] 2:00 PM EDT from Last 3 Months or Most Recently Relevant to Health Maintenance Results * COLONOSCOPY (04/18/2025 2:00 PM EDT) Anatomical Region Laterality Modality Endoscopy us Historical Provider GI~PROCEDURE ORDERABLES F inal Result from Last 3 Months or Most Recently Relevant to Health Maintenance Insurance MEDICARE MED[place] - [place] [facility] Care Teams System Engineer Relationship Specialty Start Date End Date Sherice Steiner MD [address] [place] [phone] PCP - General Internal Medicine 02/11/18
--- OUTSIDE RECORDS SUMMARY | 2025-08-03 09:49 | XMS_ITS | Data Portability ---
Author Organization [place] [facility] Address [address] [place] [address] Care Team Providers Care Public Relations Account Executive Name Role Phone ANN MILLER Primary Care [...] opted to travel by private care to [facility], expect called into [facility]. Patients PCP contacted and updated on patient status. Patient verbalized understanding of discharge instructions and when to follow up with PCP/911/ED as needed. Patient in agreement with current plan and treatment. [email or web address] Not available 12/17/2019 15:57:59 Plan of Treatment Reminders Order Date Submit Date Provider Last Modified By Organization Details Last Modified Time Details Appointments None recorde d. Lab 6+ iStat 020 mary Spr - Home, [address] [facility], [place], [address], 0 16:01:44 creatin ine, blood 020 mary Spr - Home, [address] [facility], [place], [address], 0 16:01:43 Referral None recorde d. Procedures None recorde d. Surgeries None recorde d. Imaging None recorde d. Medication Orders None recorde d. Patient TargetsNo targets recorded. Patient Instructions Encounter Date Encounter Id Patient Instructions Last Modified By Organization Details Last Modified Time 12/17/2019 [id number] Anxiety What you should know: Anxiety is [...] symptoms as well as a sensation of w orry. Some of the possible physical symptoms are [...] symptoms are persistent. AFTER YOUR VISIT WITH [facility] Medicines: We may have prescribed medicines to help you relax. Take your medicine as directed. [facility] cannot refill these medicines for you. Contact [...] day if you are a man. A d rink of alcohol is considered 12 ounces of beer, 5 ounces of wine, or 1 ounces of liquor. CONTACT YOUR PCP IF: [...] in your condition between 8am-10pm, please call [facility] at [phone] to help navigate your care. mary Not available 12/17/2019 14:52:34 Reason for Referral None Reported. Results Created Date Observation Date Name Description Value Unit Range Abnormal Flag Note LastModifiedBy Organization Detail LastModifiedTime 12/17/1912/17/2019 creat inine , blood crea 0.9 mg/dL 0.6-1. 3 Not Available Spr - Home [address] [place], [address], 12/17/2019 16:00:27 12/17/19 20 12/17/2019 6+ iStat Na 141 mmol/ L 138-14 6 Not Available Spr - Home [address] [place], [address], 12/17/2019 16:00:21 12/17/19 20 12/17/2019 6+ iStat K 3.1 mmol/ L 3.5-4. 9 Not Available Spr - Home [address] [place], [address], 12/17/2019 16:00:21 12/17/19 20 12/17/2019 6+ iStat cL 99 mmol/ L 98-109 Not Available Spr - Home [address] [place], [address], 12/17/2019 16:00:21 12/17/19 20 12/17/2019 6+ iStat BUN 17 mg/dL 8-26 Not Available Spr - Home [address] [place], [address], 12/17/2019 16:00:21 12/17/19 20 12/17/2019 6+ iStat glu 156 mg/dL 70-105 Not Available Spr - Home [address] [place], [address], 12/17/2019 16:00:21 12/17/19 20 12/17/2019 6+ iStat HCT 42 %_pcv 37-47 Not Available Spr - Home [address] [place], [address], 12/17/2019 16:00:21 12/17/19 20 12/17/2019 6+ iStat Hb 14.3 g/dL 12-17 Not Available [facility] - Home [address], [place], [address], 12/17/2019 16:00:21 01/03/20 20 elect juan m diogr am No observ ation record ed. BARCODE Not Available 2019 18:58:30 Result Notes None recorded. Problems Name Problem SNOMED Code Status Onset Date Resolution Date Notes Provider Name and Address Organization Details Recorded Time Hypertensive disorder 00195234 Active 2019 ANN NEWSOME NP [address], [place], [address], [place] [facility] 0 14:49:52 Problem Notes None recorded. Procedures Surgical History Date Name Laterality Status Provider Name and Address Organization Details Recorded Time 12/17/19 20 Venipuncture - completed ANN NEWSOME NP [address], [place], [address], [place] [facility] 12/17/2019 16:00:11 12/17/19 20 ECG Interpretation - completed ANN NEWSOME NP [address], [place], [address], [place] [facility] 12/17/2019 15:50:02 Imaging Results None recorded. Procedure Notes None recorded. Medical Equipment None [...] blood by Pulse oximetry Heart rate Systolic And Diastolic Provider Name and Address Organization Details Last Updated DateTime 0 97.6 [degF] 20 /min 98 % 98 % 100 /min 160/90 mm[Hg] Not Available [facility] 0 14:55:18 Social History Question Answer Notes LastModified by Organizat ion Details LastModified Time Tobacco Smoking Status Former Smoker ANN NEWSOME NP [address] [place], [address], [place] [facility] 12/17/2019 14:52:13 Do You [...] 14:52:06 Medical History Condition Response Stroke N Asthma Y Depression Y COPD N High Cholesterol N Pulmonary Embolism N Hypertension Y Kidney Disease N Gynecological HistoryNo gynecological history recorded. Obstetrics History GPAL:G 0 P 0 0 0 0 Past Encounters Encounter ID Performer Location Encounter Start Date Encounter Closed Date Diagnosis/Indication Diagnosis SNOMED-CT Code Diagnosis ICD10 Code Diagnosis IMO Codes Diagnosis Note [id number] ANN NEWSOME NP [facility] - HOME [address] [place] [address] 12/17/2019 14:45:40 12/18/2019 10:47:28 Anxiety 04550470 F41.9 Palpitations 45536642 R0 0.2 Hypokalemia 93376405 E87 .6 Health Concerns Section Related Observation LastModified by Organization Detai ls LastModified Time None Recorded Concern Status LastModified by Organization Details LastModified Time None Recorded Advance Directives Directive N: Payers Insurance Date Sequence Insurance Name Policy Number Policy Kurtz Covered Member ID Kurtz Member ID Guarantor Name 12/16/2019 1 *SELF PAY* Azul Rothman [id number] Azul Rothman 08/03/2024 3 ( - INDEMNITY) Azul Rothman [id number] Azul Rothman 03/10/2020 2 [place] [facility] Azul Rothman [id number] Azul Rothman 03/10/2020 1 MEDICARE B-[place]: [facility] Azul Rothman [id number] Azul Rothman Notes Date Note Type Note [...] goes. ANN NEWSOME, AMARIS [address], [place], [address], [place] [facility] 12/17/2019 16:01:54 OBGyn Episode No OBEpisode recorded.
== END 2025-08-03 09:22 | disposition home or self-care (01) ==
LOC: HO.RHES 09:02
PROVIDERS: PCP Internal Medicine; Visit Provider Internal Medicine Rheumatology
DX: M81.0 Age-related osteoporosis without current pathological fracture (principal)

== ENCOUNTER → 2025-08-03 09:02 | Outpatient (BNVA) | payer MEDICARE, MEDICAID, OTHER, SELFPAY | PROVIDERS: PCP Internal Medicine; Visit Provider Internal Medicine Rheumatology | DX: M81.0 Age-related osteoporosis without current pathological fracture (principal); Z79.620 Long term (current) use of immunosuppressive biologic | CPT/HCPCS: 96372; J3111 ==

== ENCOUNTER 2025-09-07 10:03 | Outpatient (AMB) | payer MEDICARE, MEDICAID, OTHER, SELFPAY ==
--- NOTE | 2025-09-07 10:18 | AM.OFFVISNUR ---
Intake Visit Reasons: Evenity #6 Allergies No Known Allergies Allergy (Verified 06/20/25 09:46) Office Meds romosozumab-aqqg 210 mg/2.34 mL(105 mg/1.17 mL x2)subcutaneous syringe Performing Provider: Manoj Wolfe MD Performing Location: [facility] Administered by: Justa Bolivar RN on 09/07/25 10:18 Dose Route Admin Location Dispensed Lot Number Expiration Date [facility] Custom [employer] 105 mg subcut right upper arm 1.17 mL [id number] 01/19/28 54672-632-30 AMGEN 105 mg subcut left upper arm 1.17 mL [id number] 01/19/28 41935-544-46 AMGEN Total Dispensed Waste 2.34 mL 0 % Comments: Azul arrived today to receive Evenity injection #6. Sites were clear, dry, and intact. She tolerated the injections well and was notified to contact us if she has any adverse reactions or side effects. Assessment & Plan Assessment & Plan Orders: Orders AMB Romosozumab Injection Patient Supplied Today M81.0 - Age-related osteoporosis without current pathological fracture Coding
--- OUTSIDE RECORDS SUMMARY | 2025-09-07 12:22 | XMS_ITS | Clinical Summary ---
Author Organization [facility] [address] [facility] Address [address] [place] [address] Phone Care Team Providers Care City Designer Name Role Phone Sherice Steiner MD Primary Care Provider [phone] Allergies No known active allergies Medications methotrexate 2.5 mg tablet Take 2.5 mg by mouth. Active spironolactone (ALDACTONE) 25 mg tablet Take [...] 1 tablet (500 mg total). 3 Active pantoprazole (PROTONIX) 40 mg EC tabletIndication s:Gastroesophage al reflux disease with esophagitis, unspecified whether hemorrhage TAKE 1 TABLET BY MOUTH TWICE A DAY 180 tablet 1 5 Active Mounjaro 7.5 mg/0.5 mL injection Inject 0.5 mL (7.5 mg total) under the skin every 7 (seven) days. 5 Active Evenity Inject 2.34 mL (210 mg total) under the skin. 5 Active linaCLOtide (Linzess) 290 mcg capsuleIndicatio ns:Other constipation Take 1 capsule (290 mcg total) by mouth 1 (one) time each day. 90 each 3 5 08/25/20 26 Active linaCLOtide (Linzess) 290 mcg capsuleIndicatio ns:Other constipation,Ulc erative pancolitis without complication (CMS/HCC V24, CMS/HCC V28) Take 1 capsule (290 mcg total) by mouth 1 (one) time each day. 30 each 11 5 08/25/20 25 Discontin ued(Reord er) Active Problems Problem Noted Date Diagnosed Date [...] 05/15/2025 Overview (05/15/2025): [facility]R [facility] Gastroesophageal reflux disease 05/15/2025 Overview (05/15/2025): failed trial off ppi GI Dr Spring Fracture of metatarsal bone 05/15/2025 Overview (05/15/2025): 5th. After fall down two steps. [facility] Fracture of calcaneus 05/15/2025 Overview (05/15/2025): Slipped. Sen in Er and connected with [facility] Constipation 05/15/2025 Overview (05/15/2025): Saw Dr spring Assessment & Plan (08/25/2025 8:47 AM EST): Orders: linaCLOtide (Linzess) 290 mcg capsule; Take 1 capsule (290 mcg total) by mouth 1 (one) time each day. Chronic sinusitis 05/15/2025 Overview (05/15/2025): Sees Dr Mata. Has seen Dr Solorio Iron deficiency 05/15/2025 Overview (05/15/2025): did not tolareate oral so getting infusion set up by sleep med Insomnia 05/15/2025 Overview (05/15/2025): melatonin and tylenol pm did not hel Ambien and trazodone and hydroxyzine did not help Osteoarthritis 05/15/2025 Immunosuppression 05/15/2025 History of COVID-19 05/15/2025 High alkaline phosphatase 05/15/2025 Overview (05/15/2025): Normal GGTP. Normal AMA Normal isoenzymes Vitamin D deficiency 05/15/2025 Type 2 diabetes mellitus 05/15/2025 Overview (05/15/2025): glucosuria and yeast infection [...] complex 02/14/2025 Fracture of bone of hip 09/02/2023 Overview (05/15/2025): After trip over dog bowl. [facility] Carpal tunnel syndrome 08/31/2020 Overview (05/15/2025): [facility] had emg Hypertension 12/17/2019 Sleep apnea 05/03/2017 Overview (05/15/2025): AutoCPAP 8-20 cm H2O with compliance data followed Inflammatory polyarthropathy 09/01/2012 Overview (05/15/2025): Seeing Dr wayne Chronic ulcerative colitis 09/30/2011 Overview (05/15/2025): Seen on colonscopy. Followed by Dr Spring Peptic ulcer 01/22/2009 Overview (05/15/2025): Positve ab for H. pylori and was treated Encounters Date Type Department Care Team Description 08/25/2025 8:00 AM EST Office Visit Gastroenterology - [address] [place] [address] Geovanna Spring MD Other constipation; Ulcerative pancolitis without complication (CMS/HCC V24, CMS/HCC V28) from Last 3 Months Immunizations Immunization Administration [...] Date Site/Laterality Comments TOTAL KNEE ARTHROPLASTY PROCEDURE: TX ARTHRP KNE CONDYLE&PLATU MEDIAL&LAT COMPARTMENTS OTHER SURGICAL HISTORY PROCEDURE: TX SCREENING TSTS DIABETES MELLITUS RVWD RQSTD ORD [...] Date Comments Iron deficiency anemia Ulcerative colitis ([facility]/HCC V24, [facility] V28) Chronic constipation Diabetes ([facility] V24, [facility] V28) HTN (hypertension) Depression Psoriasis Osteoporosis RLS (restless legs syndrome) GERD (gastroesophageal reflux disease) Spondyloarthritis Social History Tobacco Use Types Packs/Day Years Used Date Smoking Tobacco: Former Smokeless Tobacco: Never Tobacco Cessation:Counseling Given: Not Answered Alcohol Use Standard Drinks/Week Comments No 0 (1 standard drink = 0.6 oz pur e alcohol) Comments Unknown Sex and Gender Information Value Date Recorded Sex Assigned at Not on file Legal Sex Female 10:10 AM EST Gender Identity Not on file Sexual Orientation Not on file Last Filed Vital Signs Vital Sign Reading Time Taken Comments Blood Pressure - - Pulse - - Temperature - - Respiratory Rate - - Oxygen Saturation - - Inhaled Oxygen Concentration - - Weight 90.3 kg (199 lb) 08/25/2025 8:04 AM EST Height 172.7 cm (5' 8 ) 08/25/2025 8:04 AM EST Body Mass Index 30.26 08/25/2025 8:04 AM EST Plan of Treatment Health Maintenance Due Date Last Done Comments Breast Cancer Screening 1962 Diabetes: Annual GFR (Glomerular Filtration Rate) 1962 Drug Screen 1962 Non-Opioid Controlled Substance Agreement 1962 Diabetes: Annual Foot Exam 1972 Diabetes: Annual Retina Eye Exam 1972 Hepatitis A Vaccines (1 of 2 - Risk 2-dose series) 1981 Cervical Cancer Screening: Pap Smear 1983 Hepatitis B Vaccines (1 of 3 - Risk 3-dose series) 2022 Cholesterol Screening (Lipid Panel) 10/20/2023 HIV Screening 10/20/2023 Hepatitis C Screening 10/20/2023 Medicare Annual Wellness Visit 10/20/2023 Osteoporosis Screening (Bone Density Screening) 10/20/2023 Social Influencers of Health Screening 10/20/2023 Depression Screening 09/21/2024 Diabetes: Annual Urine Albumin-Creatinine Ratio (uACR) 10/20/2024 Diabetes: Blood Sugar Control Test (HGBA1C) 10/20/2024 Hypertension/CHF/CAD Annual BMP Blood Test 10/20/2024 COVID-19 Vaccine ( season) 2025 07/10/2023, 10/03/2022, 02/28/2022, Additional history exists Pneumococcal Vaccine: 50+ Years (3 of 3 - PCV20 or PCV21) 08/09/2025 08/09/2020, 09/11/2015 DTaP,Tdap,and Td Vaccines (2 - Td or Tdap) 09/06/2029 09/06/2019 Colorectal Cancer Screening: Colonoscopy 04/18/2035 04/18/2025 Zoster Vaccines Completed 02/28/2022, 10/14/2021 RSV Immunization Adult Patients Completed 07/10/2023 Influenza Vaccine Completed 07/25/2025, , 07/08/2023, Additional history exists HIB Vaccines Aged Out [...] Laterality Modality Endoscopy us Historical Provider MD KEY~PROCEDURE ORDERABLES F inal Result from Last 3 Months or Most Recently Relevant to Health Maintenance Insurance MEDICARE MEDICAID - [place] [facility] Care Teams City Designer Relationship Specialty Start Date End Date Sherice Steiner MD [address] [place] [phone] PCP - General Internal Medicine 02/11/18
== END 2025-09-07 10:16 | disposition home or self-care (01) ==
LOC: HO.RHES 10:04
PROVIDERS: PCP Internal Medicine; Visit Provider Internal Medicine Rheumatology
DX: M81.0 Age-related osteoporosis without current pathological fracture (principal)

== ENCOUNTER → 2025-09-07 10:03 | Outpatient (BNVA) | payer MEDICARE, MEDICAID, OTHER, SELFPAY | PROVIDERS: PCP Internal Medicine; Visit Provider Internal Medicine Rheumatology | DX: M81.0 Age-related osteoporosis without current pathological fracture (principal) | CPT/HCPCS: 96372; J3111 ==